=== PATIENT | male | born 1965 | race Caucasian/White ===

== ENCOUNTER → 2023-04-30 | Outpatient (CLI) | payer OTHER ==
--- NOTE | 2023-04-30 13:42 | US ---
EXAMINATION TYPE: US arterial LE single level DATE OF EXAM: 04/30/2023 1:05 PM CLINICAL INDICATION: Male, 58 years old with history of M79.662 Pain in left lower M79.661 pain in r ight lower leg; Bilateral leg pain with walking Right > Left. Thickened toe nails History of: Smoker: Previous Hypertension: Takes medication Diabetic: No Hyperlipidemia: Yes TIA/CVA: No Previous Vascular Surgery: No CAD: No LA: No Vascular Ulcers: No Claudication: Bilateral Gangrene: No Doppler Waveforms: Right: Biphasic waveforms are within the popliteal and posterior tibial, and likely dorsalis pedis ar teries. Monophasic waveforms within the right digit. Left: Popliteal artery has biphasic waveforms and posterior tibial artery has triphasic waveforms. Do rsalis pedis left digital artery appear monophasic. Right Brachial Pressure: 134 Left Brachial Pressure: 146 Ankle-Brachial Indices: Right: 0.6 Left: 1.2 Toe Brachial Indices: Right: 0.5 Left: 0.8 IMPRESSION: 1. Waveforms and ratios suggest stenosis within the distal left lower extremity. 2. Waveforms and ratios suggest stenosis throughout the right lower extremity. 3. Consider CTA runoff for additional evaluation.
== END | disposition home or self-care (01) ==
LOC: RADUSWWP 12:22
PROVIDERS: ATTEND Family Medicine
DX: M79.662 Pain in left lower leg (principal); M79.661 Pain in right lower leg
CPT/HCPCS: 93923

== ENCOUNTER 2023-09-13 11:38 | Inpatient (IN) | payer OTHER ==
--- NOTE | 2023-09-13 11:50 | ED ---
General Adult HPI - General Source: patient, RN notes reviewed Mode of arrival: ambulatory Limitations: no limitations <Hany Craig - Last Filed: 09/13/23 11:47> <Jc Joiner - Last Filed: 09/13/23 13:15> - General Stated complaint: chest pain Time Seen by Provider: 09/13/23 11:47 - History of Present Illness Initial comments: 58-year-old male presents emergency Department with chief complaint of chest pain. States it started around 1 AM. Patient states it's centralized pressure type pain. He does have a history of hypertension he denies any prior cardiac disease otherwise denies history of diabetes or heart anemia denies any prior cardiac stents. (Hany Craig) Dictation was produced using [employer]code dictation software. please excuse any grammatical, word or spelling errors. Chief Complaint: 58-year-old male presents emergency department with chest pain History of Present Illness: Patient is a 50-year-old male presents emergency department with chest pressure he describes it as a feeling of gas in the middle of his chest. Does not have any radiation of symptoms not his arm up towards his jaw. Not associated with nausea or diaphoresis. Patient states he has extensive family history of coronary artery disease. He has no known medical problems. The ROS documented in this emergency department record has been reviewed and confirmed by me. Those systems with pertinent positive or negative responses have been documented in the HPI. All other systems are other negative and/or noncontributory. (Jc Joiner) - Related Data Allergies Allergy/AdvReac Type Severity Reaction Status Date / Time No Known Allergies Allergy Verified 09/13/23 11:48 Review of Systems ROS Other: All systems not noted in ROS Statement are negative. <Hany Craig - Last Filed: 09/13/23 11:47> ROS Other: All systems not noted in ROS Statement are negative. <Jc Joiner - Last Filed: 09/13/23 13:15> ROS Statement: Those systems with pertinent positive or pertinent negative responses have been documented in the HPI. General Exam Limitations: no limitations General appearance: alert, in no apparent distress Head exam: Present: atraumatic, normocephalic, normal inspection <Hany Craig - Last Filed: 09/13/23 11:47> <Jc Joiner - Last Filed: 09/13/23 13:15> - General Exam Comments Initial Comments: Visual Physical Exam Vital signs reviewed General: Well-appearing, nontoxic, no acute distress. Head: Normocephalic, atraumatic Eyes: PERRLA, EOMI ENT: Airway patent Chest: Nonlabored breathing Skin: No visual rash, normal skin tone Neuro: Alert and oriented 3 Musculoskeletal: No gross abnormalities (Hany Craig) PHYSICAL EXAM: General Impression: Alert and oriented x3, not in acute distress HEENT: Normocephalic atraumatic, extra-ocular movements intact, pupils equal and reactive to light bilaterally, mucous membranes moist. Cardiovascular: Heart regular rate and rhythm Chest: Able to complete full sentences, no retractions, no tachypnea Abdomen: abdomen soft, non-tender, non-distended, no organomegaly Musculoskeletal: Pulses present and equal in all extremities, no peripheral edema Motor: no focal deficits noted Neurological: CN II-XII grossly intact, no focal motor or sensory deficits noted Skin: Intact with no visualized rashes Psych: Normal affect and mood (Jc Joiner) Course Vital Signs 09/13/23 11:45 Temperature 98 F Pulse Rate 62 Respiratory 18 Rate Blood Pressure 129/78 O2 Sat by Pulse 98 Oximetry EKG Findings - EKG Comments: EKG Findings:: My EKG interpretation: Ventricular rate 50, sinus bradycardia, WA 175,. 5, QTC 395, small Q-wave and T-wave inversion in lead 3 and aVF. No other abnormalities noted. No WA prolongation, no QTC prolongation, no ST or T- wave changes noted. No old EKG for comparison. Clinical presentation suggests ischemic EKG changes. <Jc Joiner - Last Filed: 09/13/23 13:15> Medical Decision Making <Hany Craig - Last Filed: 09/13/23 11:47> - Lab Data Result diagrams: 09/13/23 11:49 09/13/23 11:49 <Jc Joiner - Last Filed: 09/13/23 13:15> - Medical Decision Making I performed a quick note portion of this chart signed Hany Craig PA-C (Hany Craig) Was pt. sent in by a medical professional or institution ([facility], [employer], urgent care, hospital, or alf...) When possible be specific @ -No Did you speak to anyone other than the patient for history (EMS, parent, family, police, friend...)? What history was obtained from this source @ -No Did you review nursing and triage notes (agree or disagree)? Why? @ -I reviewed and agree with nursing and triage notes Were old charts reviewed (outside hosp., previous admission, EMS record, old EKG, old radiological studies, urgent care reports/EKG's, alf records)? Report findings @ -No old charts were reviewed Differential Diagnosis (chest pain, altered mental status, abdominal pain women, abdominal pain men, vaginal bleeding, musculoskeletal, weakness, fever, dyspnea, syncope, headache, dizziness, GI bleed, back pain, seizure, CVA, palpatations, mental health)? @ -Differential Chest Pain: Stable Angina, Unstable Angina, STEMI, NSTEMI Aortic Dissection, Pneumothorax, Musculoskeletal, Esophageal Spasm GERD, Cholecystitis, Pancreatitis, Zoster, this is not meant to be an all-inclusive list. EKG interpreted by me (3pts min.). @ -See above X-rays interpreted by me (1pt min.). @ -Pending CT interpreted by me (1pt min.). @ -None done U/S interpreted by me (1pt. min.). @ -None done What testing was considered but not performed or refused? (CT, X-rays, U/S, labs)? Why? @ -None What meds were considered but not given or refused? Why? @ -None Did you discuss the management of the patient with other professionals (professionals i.e. [employer] [facility], [employer], lab, RT, psych nurse, social media campaign manager, community youth secretary, teacher, parole hearing officer, bilingual case manager)? Give summary @ -Case discussed in detail with baggage clerk Dr. Gomes. Discussed with Dr. Cuadra for admission Was smoking cessation discussed for >3mins.? @ -No Was critical care preformed (if so, how long)? @ -Yes, 33 minutes Were there social determinants of health that impacted care today? How? (Homelessness, low income, unemployed, alcoholism, drug addiction, transporta tion, low edu. Level, literacy, decrease access to med. care, senior living, rehab)? @ -No Was there de-escalation of care discussed even if they declined (Discuss DNR or withdrawal of care, Hospice)? DNR status @ -No What co-morbidities impacted this encounter? (DM, HTN, Smoking, COPD, CAD, Cancer, CVA, ARF, Chemo, Hep., AIDS, mental health diagnosis, sleep apnea, morbid obesity)? @ -None Was patient admitted / discharged? Hospital course, mention meds given and route, prescriptions, significant lab abnormalities, going to OR and other pertinent info. @ -58-year-old male presents to emergency Department with ACS chest pain. Vital signs are stable. Laboratory evaluation obtained. Patient has troponin level 4.680. Case discussed with cardiology. They evaluated patient at the bedside. Patient admitted. Start on heparin given aspirin. Undiagnosed new problem with uncertain prognosis? @ -No Drug Therapy requiring intensive monitoring for toxicity (Heparin, Nitro, Insulin, Cardizem)? @ -No Were any procedures done? @ -No Diagnosis/symptom? Acute, or Chronic, or Acute on Chronic? Uncomplicated (without systemic symptoms) or Complicated (systemic symptoms)? @ -NSTEMI Side effects of treatment? @ -No Exacerbation, Progression, or Severe Exacerbation? @ -No Poses a threat to life or bodily function? How? (Chest pain, [place], [place], pneumonia, PE, COPD, DKA, ARF, appy, cholecystitis, CVA, Diverticulitis, Homicidal, Suicidal, threat to staff... and all critical care pts) @ -yes (Jc Joiner) - Lab Data Lab Results 09/13/23 09/13/23 09/13/23 Range/Units 11:49 11:49 11:49 WBC 15.3 H (3.8-10.6) k/uL RBC 4.62 (4.30-5.90) m/uL Hgb 14.9 (13.0-17.5) gm/dL Hct 41.3 (39.0-53.0) % MCV 89.4 (80.0-100.0) fL MCH 32.2 (25.0-35.0) pg MCHC 36.0 (31.0-37.0) g/dL RDW 12.2 (11.5-15.5) % Plt Count 301 (150-450) k/uL MPV 8.5 Neutrophils % 78 % Lymphocytes % 17 % Monocytes % 3 % Eosinophils % 1 % Basophils % 0 % Neutrophils # 12.0 H (1.3-7.7) k/uL Lymphocytes # 2.5 (1.0-4.8) k/uL Monocytes # 0.5 (0-1.0) k/uL Eosinophils # 0.1 (0-0.7) k/uL Basophils # 0.0 (0-0.2) k/uL PT 10.1 (10.0-12.5) sec INR 0.9 (<1.2) APTT 23.7 (22.0-30.0) sec Sodium 135 L (137-145) mmol/L Potassium 4.3 (3.5-5.1) mmol/L Chloride 106 (98-107) mmol/L Carbon Dioxide 19 L (22-30) mmol/L Anion Gap 10 mmol/L BUN 12 (9-20) mg/dL Creatinine 0.54 L (0.66-1.25) mg/dL Est GFR (CKD-EPI)AfAm >90 (>60 ml/min/1.73 sqM) Est GFR (CKD-EPI)NonAf >90 (>60 ml/min/1.73 sqM) Glucose 136 H (74-99) mg/dL Calcium 9.3 (8.4-10.2) mg/dL Magnesium 1.8 (1.6-2.3) mg/dL Total Bilirubin 0.7 (0.2-1.3) mg/dL AST 91 H (17-59) U/L ALT 32 (4-49) U/L Alkaline Phosphatase 51 (38-126) U/L Troponin I (0.000-0.034) ng/mL NT-Pro-B Natriuret Pep 210 pg/mL Total Protein 8.0 (6.3-8.2) g/dL Albumin 4.5 (3.5-5.0) g/dL 09/13/23 Range/Units 11:49 WBC (3.8-10.6) k/uL RBC (4.30-5.90) m/uL Hgb (13.0-17.5) gm/dL Hct (39.0-53.0) % MCV (80.0-100.0) fL MCH (25.0-35.0) pg MCHC (31.0-37.0) g/dL RDW (11.5-15.5) % Plt Count (150-450) k/uL MPV Neutrophils % % Lymphocytes % % Monocytes % % Eosinophils % % Basophils % % Neutrophils # (1.3-7.7) k/uL Lymphocytes # (1.0-4.8) k/uL Monocytes # (0-1.0) k/uL Eosinophils # (0-0.7) k/uL Basophils # (0-0.2) k/uL PT (10.0-12.5) sec INR (<1.2) APTT (22.0-30.0) sec Sodium (137-145) mmol/L Potassium (3.5-5.1) mmol/L Chloride (98-107) mmol/L Carbon Dioxide (22-30) mmol/L Anion Gap mmol/L BUN (9-20) mg/dL Creatinine (0.66-1.25) mg/dL Est GFR (CKD-EPI)AfAm (>60 ml/min/1.73 sqM) Est GFR (CKD-EPI)NonAf (>60 ml/min/1.73 sqM) Glucose (74-99) mg/dL Calcium (8.4-10.2) mg/dL Magnesium (1.6-2.3) mg/dL Total Bilirubin (0.2-1.3) mg/dL AST (17-59) U/L ALT (4-49) U/L Alkaline Phosphatase (38-126) U/L Troponin I 4.680 H* (0.000-0.034) ng/mL NT-Pro-B Natriuret Pep pg/mL Total Protein (6.3-8.2) g/dL Albumin (3.5-5.0) g/dL Disposition <Hany Craig - Last Filed: 09/13/23 11:47> Decision Time: 13:15 <Jc Joiner - Last Filed: 09/13/23 13:15> Clinical Impression: NSTEMI (non-ST elevated myocardial infarction) Disposition: ADMITTED IP TO THIS HOSP Condition: Critical Referrals: Francois Patel Jr, DO [Primary Care Provider] - 1-2 days
[2023-09-13 12:10] LABS: Basophils % (A) 0 %; Eosinophils # (A) 0.1 k/uL (0-0.7); Eosinophils % (A) 1 %; HCT 41.3 % (39.0-53.0); HGB 14.9 gm/dL (13.0-17.5); Lymphocytes # (A) 2.5 k/uL (1.0-4.8); Lymphocytes % (A) 17 %; MCH 32.2 pg (25.0-35.0); MCV 89.4 fL (80.0-100.0); Mean Platelet Volume 8.5; Monocytes # (A) 0.5 k/uL (0-1.0); Monocytes % (A) 3 %; Neutrophils % (A) 78 %; Platelet Count 301 k/uL (150-450); RBC 4.62 m/uL (4.30-5.90); RDW 12.2 % (11.5-15.5); WBC 15.3 k/uL (3.8-10.6)
[2023-09-13 12:18] LABS: INR 0.9 (<1.2); Partial Thromboplastin Time 23.7 sec (22.0-30.0); Prothrombin Time 10.1 sec (10.0-12.5)
[2023-09-13 12:28] LABS: ALT 32 U/L (4-49); AST 91 U/L (17-59); African American GFR (CKD) >90 (>60 ml/min/1.73 sqM); Albumin 4.5 g/dL (3.5-5.0); Alkaline Phosphatase 51 U/L (38-126); Anion Gap 10 mmol/L; Blood Urea Nitrogen 12 mg/dL (9-20); Calcium 9.3 mg/dL (8.4-10.2); Carbon Dioxide 19 mmol/L (22-30); Chloride 106 mmol/L (98-107); Glucose 136 mg/dL (74-99); Magnesium 1.8 mg/dL (1.6-2.3); Non-African American GFR(CKD) >90 (>60 ml/min/1.73 sqM); Potassium 4.3 mmol/L (3.5-5.1); Sodium 135 mmol/L (137-145); Total Bilirubin 0.7 mg/dL (0.2-1.3)
[2023-09-13] MEDS ORDERED: ASPIRIN 81 MG PO STA (12:28)
[2023-09-13 12:36] LABS: NT-Pro-B-Type Natriuretic Pept 210 pg/mL
[2023-09-13] MEDS ORDERED: HEPARIN SODIUM 1,000 UN/ML (10ML VL) IV PRN (12:54)
[2023-09-13] MEDS ORDERED: HEPARIN SODIUM 1,000 UN/ML (10ML VL) IV ONE (12:54)
[2023-09-13] MEDS ORDERED: HEPARIN SOD,PORK IN 0.45% NACL 25,000 UNIT in 0.45% NACL 1 250ML.BAG IV SCH (13:00)
[2023-09-13] MEDS ORDERED: NITROGLYCERIN SL TABS 0.4 MG TAB SUBLINGUAL PRN ×2 (13:10→13:33)
[2023-09-13] MEDS ORDERED: ALPRAZolam 0.5 MG TAB PO PRN (13:33)
[2023-09-13] MEDS ORDERED: ALPRAZolam 0.25 MG TAB PO PRN (13:33)
[2023-09-13] MEDS: METOPROLOL TARTRATE 12.5 MG TAB PO SCH ×2 (14:31→21:55)
[2023-09-13] MEDS: NITROGLYCERIN OINT 1 INCH/GM PACKET TOPICAL SCH ×2 (14:31→18:11)
[2023-09-13] MEDS: SODIUM CHLORIDE 0.9% 1,000 ML IV SCH (14:33)
--- NOTE | 2023-09-13 15:28 | XR ---
EXAMINATION TYPE: XR chest 2V DATE OF EXAM: 09/13/2023 3:17 PM COMPARISON: None TECHNIQUE: XR chest 2V Frontal and lateral views of the chest. CLINICAL INDICATION:Male, 58 years old with history of Chest Pain; FINDINGS: Lungs/Pleura: There is no evidence of pleural effusion, focal consolidation, or pneumothorax. Slight elevation of the right hemidiaphragm. Pulmonary vascularity: Unremarkable. Heart/mediastinum: Cardiomediastinal silhouette is unremarkable. Musculoskeletal: No acute osseous pathology. IMPRESSION: No acute cardiopulmonary disease/process.
[2023-09-13] MEDS ORDERED: NITROGLYCERIN-D5W PMX 50 MG in DEXTROSE/WATER 1 250ML.BAG IV SCH (19:15)
--- NOTE | 2023-09-13 19:29 | CA ---
Transthoracic Echo Report Name: Misael Rothman Age: 58 Gender: M : 1965 Exam Date: 09/13/2023 13:47 Exam Location: [facility] Ht (in): 68 Wt (lb): 250 Ordering Physician: Zulema Lafleur Attending/Referring Phys: [id number], Miquel Surgical Tech Edgardo Conway Procedure CPT: Indications: NSTEMI, LV Function Cardiac Hx: Technical Quality: Fair Contrast 1: Total Dose (mL): Contrast 2: Total Dose (mL): MEASUREMENTS (Male / Female) Normal Values 2D ECHO LV Diastolic Diameter PLAX 4.3 cm 4.2 - 5.9 / 3.9 - 5.3 cm LV Systolic Diameter PLAX 3.3 cm IVS Diastolic Thickness 1.0 cm 0.6 - 1.0 / 0.6 - 0.9 cm LVPW Diastolic Thickness 1.1 cm 0.6 - 1.0 / 0.6 - 0.9 cm LV Relative Wall Thickness 0.5 RV Internal Dim ED PLAX 3.6 cm LVOT Diameter 2.0 cm Aortic Root Diameter 2.9 cm LA Systolic Diameter LX 2.3 cm 3.0 - 4.0 / 2.7 - 3.8 cm LV Diastolic Volume MOD BP 76.0 cm??? 67 - 155 / 56 - 104 cm??? LV Systolic Volume MOD BP 38.1 cm??? 22 - 58 / 19 - 49 cm??? LV Ejection Fraction MOD BP 49.8 % >= 55 % LV Cardiac Index MOD BP 842.4 cm???/min???m??? LV Diastolic Volume MOD 4C 94.5 cm??? LV Systolic Volume MOD 4C 46.9 cm??? LV Ejection Fraction MOD 4C 50.4 % LV Cardiac Index MOD 4C 1060.7 cm???/min???m??? LV Diastolic Length 4C 7.9 cm LV Systolic Length 4C 7.3 cm LV Diastolic Volume MOD 2C 60.1 cm??? LV Systolic Volume MOD 2C 27.3 cm??? LV Ejection Fraction MOD 2C 54.6 % LV Cardiac Index MOD 2C 730.2 cm???/min???m??? LV Diastolic Length 2C 7.7 cm LV Systolic Length 2C 6.4 cm LA Volume 55.9 cm??? 18 - 58 / 22 - 52 cm??? LA Volume Index 23.5 cm???/m??? 16 - 28 cm???/m??? Ascending Aorta Diameter 3.6 cm DOPPLER AV Peak Velocity 163.3 cm/s AV Peak Gradient 10.7 mmHg LVOT Peak Velocity 135.7 cm/s LVOT Peak Gradient 7.4 mmHg LVOT Velocity Time Integral 28.9 cm LVOT Stroke Volume 89.1 cm??? LVOT Stroke Volume Index 39.6 ml/m??? LVOT Cardiac Index 1982.9 cm???/min???m??? AV Area Cont Eq pk 2.6 cm??? MV Peak Velocity 123.5 cm/s MV Peak Gradient 6.1 mmHg MV Mean Velocity 63.9 cm/s MV Mean Gradient 2.1 mmHg MV Velocity Time Integral 54.6 cm Mitral E Point Velocity 118.7 cm/s Mitral A Point Velocity 85.6 cm/s Mitral E to A Ratio 1.4 MV Deceleration Time 193.3 ms MV E' Velocity 8.8 cm/s Mitral E to MV E' Ratio 13.5 TR Peak Velocity 258.0 cm/s TR Peak Gradient 26.6 mmHg Right Ventricular Systolic Press 31.6 mmHg PV Peak Velocity 111.1 cm/s PV Peak Gradient 4.9 mmHg FINDINGS Left Ventricle Normal LV size and wall thickness. Left ventricular ejection fraction is estimated at 45-50 %. Inferoapical and inferoseptal hypokinesis Right Ventricle Normal right ventricular size. RVSP=32mmHg. Right Atrium Normal right atrial size. Left Atrium Normal left atrial size. LA volume index= 25ml/m2 Mitral Valve Structurally normal mitral valve. No mitral regurgitation. No mitral stenosis. Aortic Valve Aortic valve not well visualized. Trileaflet aortic valve. No aortic valve stenosis or regurgitation. Tricuspid Valve Structurally normal tricuspid valve. Trace TR. Pulmonic Valve Pulmonic valve not well visualized. No pulmonic regurgitation. Pericardium Normal pericardium. Aorta Normal size aortic root and proximal ascending aorta. CONCLUSIONS 1. Mildly impaired left ventricular systolic function with inferoapical and inferoseptal hypokinesis 2. Limited Doppler study with no significant abnormalities Previewed by: Dr. Nata Clark MD (Electronically Signed) Final Date: 13 September 2023 19:28
[2023-09-13] MEDS: ATORVASTATIN 80 MG TAB PO SCH (21:55)
[2023-09-13] MEDS: SODIUM CHLORIDE 0.9% 1,000 ML in EMPTY BAG 1 BAG IV SCH (23:19)
--- NOTE | 2023-09-13 23:53 | CONS ---
CONSULTATION HISTORY OF PRESENT ILLNESS: Misael Rothman is a 58-year-old gentleman, who has a history of hypertension, peripheral arterial disease, and also marijuana use. He uses marijuana every day. He does not consume alcohol on a regular basis. He came into the hospital because he felt uncomfortable feeling in the chest at about midnight last night. It is more than 12 hours. He still has a mild sensation of discomfort, but he is resting comfortably. His troponin is elevated and EKG suggests sinus bradycardia with Q-waves in the inferior leads and ST-T changes indicating subacute myocardial infarction. The patient is hemodynamically stable. His discomfort is very mild. He is resting comfortably. He also had a recent arterial Doppler study performed because of some lower extremity ischemia symptoms and VIRI was abnormal with 0.6 on the right and 1.2 on the left. However, distal pulses are also palpable, somewhat feeble. He is resting comfortably at the time of my evaluation. PAST MEDICAL HISTORY: 1. Hypertension. He takes a medication, unable to remember. 2. Right lower extremity pain on walking with peripheral artery disease documented ischemia, documented diffuse disease on a doppler study. 3. History of marijuana use. ALLERGIES: None. MEDICATIONS: He does not remember, but he takes 1 medication for his blood pressure. Coronary risk factors include marijuana use, hypertension, cholesterol status is unknown. He does not smoke cigarettes and he has no diabetes and no family history of premature CAD. PHYSICAL EXAMINATION: VITAL SIGNS: His blood pressure is 128/70, pulse rate is 62 per minute regular. HEENT: Unremarkable. Fundus was not examined by me. NECK: Supple. There is no carotid bruit. No JVD. HEART: Reveals S1, S2 heard normally. Distant heart sounds. No significant murmurs. LUNGS: Revealed decent bilateral air entry. ABDOMEN: Soft, nontender. EXTREMITIES: Lower extremities reveal diminished, but palpable pulses. CENTRAL NERVOUS SYSTEM: Grossly within normal limits. Troponin level is 4.6. BNP is normal. Renal function is normal. Hemoglobin and platelet count are normal. EKG revealed sinus mechanism, sinus bradycardia, inferior Q-waves with ST-T abnormalities suggestive of a subacute inferior ID. IMPRESSION: 1. Lej-[id number] myocardial infarction, probably involving the inferior wall with no significant chest pain. Hemodynamically stable. 2. History of marijuana use. 3. Hypertension. 4. History of peripheral artery disease with right lower extremity ischemia based on a Doppler study that was performed in April of this year, which revealed an VIRI of 0.6 on the right and 1.2 on the left. It appears that there are biphasic waveforms in the popliteal and posterior tibial, and monophasic in the right digit. On the left side also there are biphasic waveforms with triphasic waveforms in the posterior tibial, but again he has distal disease. IMPRESSION: 1. Subacute non ST elevation myocardial infarction. 2. Peripheral artery disease, bilateral lower extremity, more so on the right than the left. 3. Hypertension. 4. Chronic marijuana use. RECOMMENDATIONS: I am recommending IV heparin, nitrates, aspirin and avoid beta blockers if the heart rate is less than 55. If he has no further increase in symptoms, I will study him tomorrow on a cardiac cath and intervention from right radial approach. If he has any increase in symptomatology, we will study him today. I explained to him the rationale, risks, benefits, options related to cardiac cath. He understands and wishes to proceed with the procedure. We will keep him n.p.o. and see how he does over the next 3 hours. Discussed my thoughts in detail with the patient and his son. Thank you very much for the consult. MMFRANCEL / IJN: [id number] /
[2023-09-14] MEDS: SODIUM CHLORIDE 0.9% 1,000 ML IV SCH (03:20)
[2023-09-14 03:54] LABS: LDL Cholesterol,Calculated 145.8 mg/dL (0.0-131.0)
[2023-09-14] MEDS ORDERED: ASPIRIN 325 MG TAB PO ONE (05:00)
[2023-09-14] MEDS ORDERED: ATORVASTATIN 80 MG TAB PO ONE (05:00)
[2023-09-14] MEDS: SODIUM CHLORIDE 0.9% 1,000 ML in EMPTY BAG 1 BAG IV SCH ×3 (05:33→22:48)
[2023-09-14] MEDS ORDERED: HEPARIN SODIUM,PORCINE (1 ML) 2,500 UNIT in SODIUM CHLORIDE 0.9% 250 ML IRRIGATION PRN (07:00)
[2023-09-14] MEDS ORDERED: HEPARIN SODIUM,PORCINE 10,000 UNIT in SODIUM CHLORIDE 0.9% 1,000 ML IRRIGATION PRN (07:00)
[2023-09-14] MEDS ORDERED: LIDOCAINE 1% INJ 10MG/ML (20 ML MDV) ONE (07:21)
[2023-09-14] MEDS ORDERED: VERAPAMIL 2.5 MG/ML 2 ML AMP ONE (07:21)
[2023-09-14] MEDS ORDERED: HEPARIN SODIUM 1,000 UN/ML (10ML VL) ONE (07:36)
[2023-09-14] MEDS: MIDAZOLAM 2 MG/2 ML VIAL IVP ONE ×2 (07:40→07:44)
[2023-09-14] MEDS ORDERED: LIDOCAINE 1% INJ 10MG/ML (5 ML VIAL-PF) SQ ONE (07:43)
[2023-09-14] MEDS ORDERED: VERAPAMIL SYRINGE (5 MG/10 ML) INTRAARTER ONE (07:47)
[2023-09-14] MEDS: HEPARIN SODIUM 1,000 UN/ML (10ML VL) IVP ONE ×3 (07:52→08:28)
[2023-09-14] MEDS ORDERED: IOPAMIDOL-370 100ML BTL INJ ONE ×2 (08:00→08:07)
[2023-09-14] MEDS ORDERED: HYDROmorphone 0.5 MG/0.5 ML SYRINGE IVP ONE (08:25)
[2023-09-14] MEDS ORDERED: TIROFIBAN 12.5MG-250ML NS 250 ML IV ONE (08:28)
[2023-09-14] MEDS ORDERED: NITROGLYCERIN 1000MCG/10ML SYRINGE INTRACORON ONE (08:31)
[2023-09-14] MEDS ORDERED: PHENYLEPHRINE-0.9% NACL SYG 1,000 MCG/10 ML SYRINGE IVP ONE ×2 (08:33→08:38)
[2023-09-14] MEDS ORDERED: SODIUM CHLORIDE 0.9% 1,000 ML IV ONE (08:41)
[2023-09-14] MEDS ORDERED: IV FLUID CONTINUATION 900 ML IV ONE (08:42)
[2023-09-14] MEDS ORDERED: TICAGRELOR 90 MG TAB ONE (08:46)
[2023-09-14] MEDS ORDERED: TICAGRELOR 90 MG TAB PO ONE (08:48)
[2023-09-14] MEDS ORDERED: ZOLPIDEM 5 MG TAB PO PRN (08:53)
[2023-09-14] MEDS ORDERED: RX INFO: IV CONTRAST WAS GIVEN 1 EACH MISC MISCELLANE PRN (08:53)
[2023-09-14] MEDS ORDERED: MAG HYDROX/AL HYDROX/SIMETH 30 ML CUP PO PRN (08:53)
[2023-09-14] MEDS ORDERED: ATROPINE SULFATE 0.1 MG/ML 10ML SYRINGE IV PRN (08:53)
[2023-09-14] MEDS ORDERED: NITROGLYCERIN SL TABS 0.4 MG TAB SUBLINGUAL PRN (08:53)
[2023-09-14] MEDS ORDERED: ASPIRIN 325 MG TAB PO SCH (09:00)
[2023-09-14] MEDS: METOPROLOL TARTRATE 12.5 MG TAB PO SCH (09:16)
[2023-09-14] MEDS: ASPIRIN 81 MG PO SCH (09:16)
--- NOTE | 2023-09-14 09:58 | CC ---
CARDIAC CATHETERIZATION REPORT PROCEDURES PERFORMED: 1. Left heart catheterization and coronary angiography. 2. Percutaneous transluminal coronary angioplasty and stenting of a totally activated mid RCA with the 3 drug-eluting stents. PERFORMED BY: Dr. Morales Gomes. ANESTHESIA: Moderate conscious sedation time was 64 minutes. The patient was administered Versed and Dilaudid. Oxygen saturation, hemodynamics and EKG were monitored closely. CLINICAL INFORMATION: Mr. Misael Rothman is a 58-year-old gentleman with a history of hypertension and chronic marijuana use, who came into the hospital with a history of chest pain 12 hours prior to arrival, had mild discomfort but already had Q-waves in inferior leads with the ST-segment changes suggestive of a subacute non ST-elevation inferior MS. He remains stable, but had a troponin elevation through the night. No significant chest pain. I performed a cardiac catheterization this morning after due discussion regarding risks, benefits, and options. PROCEDURE NOTE: Under local anesthesia and strict aseptic precautions, a 6-Vietnamese introducer was placed in the right radial artery. Using a JR4 and JL3.5 catheters, I performed coronary angiography and also checked LV pressures with the same right Kelli catheter but did not do an LV-gram. Subsequently, I went ahead and performed PCI of a totally occluded RCA in the same setting. Following the procedure, the TR band was taken out and the patient was sent to the room in stable condition. Excellent angiographic result was achieved. CARDIAC CATHETERIZATION FINDINGS: The left ventricular end-diastolic pressure was 16 mmHg without any gradient across aortic valve. CORONARY ANGIOGRAPHY FINDINGS: Right coronary artery: This is a dominant vessel, totally occluded in the midportion without antegrade flow. This vessel comes off almost vertically from the aorta at a vertical takeoff. A cannulation was somewhat difficult. There was no antegrade flow. This is a super dominant vessel totally occluded in the midportion. Left main coronary artery: This is a short patent disease-free vessel that bifurcates into LAD and circumflex. Left anterior descending coronary artery: Good-caliber vessel, extends along the anterior wall, gives off septal and diagonal branches. There are minor irregularities of 30% to 40%. Mid LAD has some bridging and then the vessel runs all the way to the apex and curves over the inferoapical portion, has no significant disease. LAD therefore has bridging in the middle 30% to 40% narrowing. No significant disease. Left posterior circumflex coronary artery: Nondominant vessel, gives off an obtuse marginal branch and this has a subtotal occlusion, probably a chronic occlusion and then gives off a groove branch. Fair caliber, fair distribution vessel, but nondominant, right super dominant. FINAL IMPRESSION: The patient has slightly elevated filling pressures. No gradient. Super dominant RCA with 100% occlusion in the midportion. The LAD has noncritical disease of 30% to 40% with bridging in the midportion. Circumflex subtotal mid occlusion after a groove branch. Nondominant circumflex superdominant RCA. LVgram not performed. RECOMMENDATIONS: I recommended PCI of RCA that was performed in the same setting. PCI PROCEDURE DETAILS: I used a multipurpose 1 guide catheter to cannulate the right coronary artery, which was a vertical takeoff. Run-through wire was used to cross the lesion. Predilatation was performed with a 3.0 caliber 12 mm NC Trek balloon. Multiple inflations were given. I then deployed a 3.25 caliber 18 mm stent in the distal aspect of the lesion and another 18 mm along the proximal aspect of the lesion and in between the 2 stents, an 8 mm long 3.25 caliber Xience stent was deployed. All of these were 3.25 caliber Xience stent deployed at 13 atmospheres with excellent angiographic result. The patient became transiently hypotensive requiring 200 mg of Eugene-Synephrine. The patient's blood pressure normalized very quickly. Excellent angiographic result was achieved. He received 7000 units of heparin. ACT was 221. He also was placed on an Aggrastat bolus and drip as per protocol. The patient received 180 mg of Brilinta. He will continue aspirin and Brilinta 90 mg b.i.d. without interruption for 1 year. Excellent angiographic result without complication was achieved. Results were discussed with the patient and family. Risk factor modification issues were discussed. MMODL / IJN: [id number] /
[2023-09-14] MEDS ORDERED: DEXTROSE 50% SYRINGE 50 ML IVP PRN ×2 (17:15)
[2023-09-14 17:22] VITALS: BMI 37.0
--- NOTE | 2023-09-14 17:26 | P.HPIM ---
History of Present Illness H&P Date: 09/14/23 Chief Complaint: Chest pain This is a 58-year-old gentleman with past medical history significant for former nicotine dependence, daily marijuana use, hypertension, PAD, presented to the ER approximately 12 hours after developing midsternal nonradiating chest pressure. Patient reports he woke up at 1:30 in the morning yesterday with a "gas-like pressure", attributed to consuming chili for dinner the evening before. Elevated troponins, 4.68, 18.8, 35.3, abnormal EKG with inferior lead Q waves and ST segment changes, subacute NSTEMI as per cardiology's review. Patient proceeded with cardiac catheterization this morning, reporting slightly elevated filling pressures, superdominant RCA with 100% occlusion in the midportion, LAD with noncritical disease of 30-40% with bridging in the midportion, circumflex subtotal mid occlusion after a groove branch, nondominant circumflex superdominant RCA. PCI of RCA performed. Tolerated procedure well. Currently denies chest pain chest pressure or palpitations or shortness of breath. Review of Systems ROS Statement: Those systems with pertinent positive or pertinent negative responses have been documented in the HPI. ROS Other: All systems not noted in ROS Statement are negative. Past Medical History Past Medical History: No Reported History History of Any Multi-Drug Resistant Organisms: None Reported Past Surgical History: No Surgical Hx Reported Past Psychological History: No Psychological Hx Reported Smoking Status: Former smoker Past Alcohol Use History: None Reported Past Drug Use History: None Reported, Marijuana Medications and Allergies Home Medications Medication Instructions Recorded Confirmed Type Nebivolol HCl [Bystolic] 10 mg PO PC-LUNCH 09/13/23 09/13/23 History Allergies Allergy/AdvReac Type Severity Reaction Status Date / Time No Known Allergies Allergy Verified 09/13/23 13:51 Physical Exam Vitals: Vital Signs Temp Pulse Pulse Pulse Resp BP BP 09/14/23 10:54 98.8 F 56 L 26 H 104/66 09/14/23 10:36 58 L 09/14/23 10:08 60 17 100/64 09/14/23 09:38 56 L 17 109/69 09/14/23 09:23 97.7 F 59 L 18 108/71 09/14/23 04:00 99.3 F 56 L 16 108/58 09/14/23 02:00 55 L 16 09/14/23 00:00 98.9 F 55 L 16 109/63 09/13/23 20:46 98.5 F 67 16 115/62 09/13/23 20:45 98.5 F 67 16 115/62 09/13/23 20:13 56 L 18 99/68 09/13/23 18:00 58 L 21 103/58 09/13/23 16:20 54 L 18 102/73 09/13/23 14:22 54 L 16 129/82 09/13/23 11:45 98 F 62 18 129/78 Pulse Ox 09/14/23 10:54 97 09/14/23 10:36 09/14/23 10:08 97 09/14/23 09:38 98 09/14/23 09:23 98 09/14/23 04:00 96 09/14/23 02:00 09/14/23 00:00 97 09/13/23 20:46 98 09/13/23 20:45 98 09/13/23 20:13 95 09/13/23 18:00 95 09/13/23 16:20 94 L 09/13/23 14:22 98 09/13/23 11:45 98 Intake and Output 09/13/23 09/14/23 09/14/23 22:59 06:59 14:59 Intake Total 1280 Output Total 1000 Balance -1000 1280 Intake: IV 800 Oral 480 Output: Urine 1000 Other: # Voids 1 Weight 113.398 kg 110.45 kg PHYSICAL EXAM: VITAL SIGNS: [As above] GENERAL: Lying in bed, no acute distress HEENT: Normocephalic, Conjunctivae normal. eyes normal. NECK: Supple, No JVD. No thyroid enlargement. No LNs CARDIOVASCULAR: S1, S2 regular.. No murmur RESPIRATION: Breath sounds diminished in the bases. No rhonchi or crackles. No bronchial breathing. ABDOMEN: Soft, nontender . No guarding. no masses palpable. No ascites, No hepatosplenomegaly.Bowel sounds heard. LEGS: No edema. no swelling PSYCHIATRY: Alert and oriented X3, mood and affect normal. NERVOUS SYSTEM: Cranial N 2-12 grossly normal. Moves all 4 limbs. No focal deficits. Strength and sensation grossly intact.. Skin: Warm and dry, no rash Results CBC & Chem 7: 09/13/23 11:49 09/13/23 11:49 Labs: Abnormal Lab Results - Last 24 Hours (Table) 09/13/23 09/13/23 09/13/23 Range/Units 11:49 11:49 11:49 WBC 15.3 H (3.8-10.6) k/uL Neutrophils # 12.0 H (1.3-7.7) k/uL Sodium 135 L (137-145) mmol/L Carbon Dioxide 19 L (22-30) mmol/L Creatinine 0.54 L (0.66-1.25) mg/dL Glucose 136 H (74-99) mg/dL Hemoglobin A1c (<=6.0) % AST 91 H (17-59) U/L Troponin I 4.680 H* (0.000-0.034) ng/mL Cholesterol (0.00-200.00) mg/dL LDL Cholesterol, Calc (0.0-131.0) mg/dL 09/13/23 09/13/23 09/13/23 Range/Units 11:49 17:35 21:07 WBC (3.8-10.6) k/uL Neutrophils # (1.3-7.7) k/uL Sodium (137-145) mmol/L Carbon Dioxide (22-30) mmol/L Creatinine (0.66-1.25) mg/dL Glucose (74-99) mg/dL Hemoglobin A1c 6.6 H (<=6.0) % AST (17-59) U/L Troponin I 18.800 H* (0.000-0.034) ng/mL Cholesterol 210.00 H (0.00-200.00) mg/dL LDL Cholesterol, Calc 145.8 H (0.0-131.0) mg/dL 09/14/23 Range/Units 03:36 WBC (3.8-10.6) k/uL Neutrophils # (1.3-7.7) k/uL Sodium (137-145) mmol/L Carbon Dioxide (22-30) mmol/L Creatinine (0.66-1.25) mg/dL Glucose (74-99) mg/dL Hemoglobin A1c (<=6.0) % AST (17-59) U/L Troponin I 35.300 H* (0.000-0.034) ng/mL Cholesterol (0.00-200.00) mg/dL LDL Cholesterol, Calc (0.0-131.0) mg/dL Thrombosis Risk Factor Assmnt - Choose All That Apply Any of the Below Risk Factors Present?: Yes Each Factor Represents 1 point: Age 41-60 years Other Risk Factors: No Other congenital or acquired thrombophilia - If yes, enter type in comment: No Thrombosis Risk Factor Assessment Total Risk Factor Score: 1 Thrombosis Risk Factor Assessment Level: Low Risk Assessment and Plan Assessment: Chest pain,subacute NSTEMI, status post PCI of RCA Diabetes mellitus, hemoglobin A1c 6.6, further diabetic teaching in clinic. Morbid obesity, BMI 37 Primary nicotine dependence Daily marijuana use PAD Plan: Continue on current medication regime ,monitoring and symptomatic treatment. Diabetic Education. Low-dose Levemir insulin plus NovoLog Insulin sliding scale initiated hemoglobin A1c 6.6. Currently on Aggrastat drip. Continues on aspirin,Brilenta, beta tracey, statin. Discharge planning in [facility] for tomorrow pending final NV recommendations and clearance as per cardiology. The impression and plan of care has been dictated as directed. : I performed a history and examination of this patient, discussed the same with the dictator. I agree with the dictator's note ,documented as a scribe. Any additional findings or plans will be noted.
[2023-09-14] MEDS: INSULIN ASPART (NovoLOG) 100 UNIT/ML VIAL SQ SCH ×2 (18:17→20:37)
[2023-09-14 20:25] LABS: Glucose,Whole Blood 126 mg/dL (70-110)
[2023-09-14] MEDS: ATORVASTATIN 80 MG TAB PO SCH (20:41)
[2023-09-14] MEDS: METOPROLOL TARTRATE 25 MG TAB PO SCH (20:41)
[2023-09-14] MEDS ORDERED: TICAGRELOR 90 MG TAB PO SCH (21:00)
[2023-09-14] MEDS ORDERED: INSULIN DETEMIR (LEVEMIR) 100 UNIT/ML SYR SQ SCH (21:00)
[2023-09-14] MEDS ORDERED: LOSARTAN 25 MG TAB PO SCH (21:00)
[2023-09-15] MEDS: NITROGLYCERIN OINT 1 INCH/GM PACKET TOPICAL SCH (02:38)
[2023-09-15 06:08] LABS: Glucose,Whole Blood 105 mg/dL (70-110)
[2023-09-15] MEDS: INSULIN ASPART (NovoLOG) 100 UNIT/ML VIAL SQ SCH ×2 (06:20→11:40)
[2023-09-15] MEDS: SODIUM CHLORIDE 0.9% 1,000 ML in EMPTY BAG 1 BAG IV SCH (08:07)
[2023-09-15 08:41] LABS: Basophils # (A) 0.1 k/uL (0-0.2); Basophils % (A) 0 %; Eosinophils # (A) 0.1 k/uL (0-0.7); Eosinophils % (A) 1 %; HCT 37.3 % (39.0-53.0); Lymphocytes # (A) 2.9 k/uL (1.0-4.8); Lymphocytes % (A) 19 %; MCH 31.5 pg (25.0-35.0); MCHC 34.9 g/dL (31.0-37.0); MCV 90.3 fL (80.0-100.0); Monocytes # (A) 0.8 k/uL (0-1.0); Monocytes % (A) 5 %; Neutrophils # (A) 11.5 k/uL (1.3-7.7); Neutrophils % (A) 74 %; Platelet Count 248 k/uL (150-450); RBC 4.12 m/uL (4.30-5.90); RDW 12.1 % (11.5-15.5); WBC 15.5 k/uL (3.8-10.6)
[2023-09-15] MEDS ORDERED: TICAGRELOR 90 MG TAB PO SCH ×2 (09:00)
[2023-09-15] MEDS: ASPIRIN 81 MG PO SCH (09:04)
[2023-09-15] MEDS: METOPROLOL TARTRATE 25 MG TAB PO SCH (09:04)
[2023-09-15 09:05] LABS: African American GFR (CKD) >90 (>60 ml/min/1.73 sqM); Anion Gap 9 mmol/L; Blood Urea Nitrogen 13 mg/dL (9-20); Calcium 9.1 mg/dL (8.4-10.2); Carbon Dioxide 22 mmol/L (22-30); Chloride 105 mmol/L (98-107); Glucose 160 mg/dL (74-99); Non-African American GFR(CKD) >90 (>60 ml/min/1.73 sqM); Potassium 3.9 mmol/L (3.5-5.1); Sodium 136 mmol/L (137-145)
[2023-09-15 11:36] VITALS: BP 115/76; PULSE 70; RESP 20; TEMP 98.8
[2023-09-15 11:39] LABS: Glucose,Whole Blood 95 mg/dL (70-110)
--- NOTE | 2023-09-15 12:44 | P.PN ---
Subjective HISTORY OF PRESENT ILLNESS: Patient is status post cardiac catheterization with stenting of the mid RCA with 3 stents. Patient examined this morning at the bedside. Patient denies any chest pain or pressure. He denies any shortness of breath. He has been up ambulating without difficulty. Echocardiogram completed revealing ejection fraction 45-50%, inferior apical and inferior septal hypokinesis, and trace TR. PHYSICAL EXAM: VITAL SIGNS: Reviewed. GENERAL: Well-developed in no acute distress. NECK: Supple. No JVD or thyromegaly LUNGS: Respirations even and unlabored. Lungs essentially clear to auscultation bilaterally. HEART: Regular rate and rhythm. S1 and S2 heard. EXTREMITIES: Normal range of motion. No clubbing or cyanosis. Peripheral pulses intact. No lower extremity edema ASSESSMENT: Non-STEMI, status post cardiac catheterization with stenting to the mid RCA Mild ischemic cardiomyopathy PLAN: Continue Dilantin platelet therapy with aspirin and Brilinta Continue high intensity statin Continue additional cardiac medications Patient may be discharged home today from a cardiac standpoint He is to follow-up outpatient with Dr. Gomes Nurse practitioner note has been reviewed by physician. Signing provider agrees with the documented findings, assessment, and plan of care. Objective - Vital Signs Vital signs: Vital Signs Temp 98.8 F 09/15/23 11:18 Pulse 70 09/15/23 11:18 Resp 20 09/15/23 11:18 BP 115/76 09/15/23 11:18 Pulse Ox 99 09/15/23 11:18 FiO2 Intake & Output 09/14/23 09/15/23 09/15/23 18:59 06:59 18:59 Intake Total 1516 480 Balance 1516 480 Weight 110.45 kg Intake: IV 800 Oral 716 480 Other: # Voids 1 - Labs CBC & Chem 7: 09/15/23 07:59 09/15/23 07:59 Labs: Abnormal Lab Results - Last 24 Hours (Table) 09/14/23 09/15/23 09/15/23 Range/Units 20:22 07:59 07:59 WBC 15.5 H (3.8-10.6) k/uL RBC 4.12 L (4.30-5.90) m/uL Hct 37.3 L (39.0-53.0) % Neutrophils # 11.5 H (1.3-7.7) k/uL Sodium 136 L (137-145) mmol/L Creatinine 0.65 L (0.66-1.25) mg/dL Glucose 160 H (74-99) mg/dL POC Glucose (mg/dL) 126 H (70-110) mg/dL
== END 2023-09-15 13:24 | disposition home or self-care (01) | DRG 174 ==
LOC: EC 11:38 → 3SCARD 13:11
PROVIDERS: ADMIT Family Medicine; ATTEND Family Medicine
PROC: 4A023N7 Measurement of Cardiac Sampling and Pressure, Left Heart, Percutaneous Approach (ICD-10-PCS; 2023-09-14)
PROC: 027036Z Dilation of Coronary Artery, One Artery with Three Drug-eluting Intraluminal Devices, Percutaneous Approach (ICD-10-PCS; principal; 2023-09-14 07:30)
PROC: B2111ZZ Fluoroscopy of Multiple Coronary Arteries using Low Osmolar Contrast (ICD-10-PCS; 2023-09-14 07:30)
DX: I21.4 Non-ST elevation (NSTEMI) myocardial infarction (principal); E66.01 Morbid (severe) obesity due to excess calories; I25.5 Ischemic cardiomyopathy; I25.110 Atherosclerotic heart disease of native coronary artery with unstable angina pectoris; E11.51 Type 2 diabetes mellitus with diabetic peripheral angiopathy without gangrene; I07.1 Rheumatic tricuspid insufficiency; I10 Essential (primary) hypertension; F17.210 Nicotine dependence, cigarettes, uncomplicated; Z71.6 Tobacco abuse counseling; Z68.37 Body mass index [BMI] 37.0-37.9, adult; Z82.49 Family history of ischemic heart disease and other diseases of the circulatory system
CPT/HCPCS: 36415; 71046; 80048; 80053; 80061; 83036; 83735; 83880; 84484; 85025; 85610; 85730; 93005; 93306; 93458; 94760; 96365; 96366; 96374; 99291

== ENCOUNTER 2023-09-18 11:00 | Emergency (ER) | payer OTHER ==
[2023-09-18 11:15] VITALS: BP 138/58; PULSE 81; RESP 20; TEMP 99.4
[2023-09-18] MEDS ORDERED: methylPREDNISolone SOD SUCCI 125 MG/2 ML VIAL IM ONE (11:24)
--- NOTE | 2023-09-18 11:28 | ED ---
General Adult HPI - General Chief complaint: Recheck/Abnormal Lab/Rx Stated complaint: mouth swelling Time Seen by Provider: 09/18/23 11:05 Source: patient, RN notes reviewed, old records reviewed Mode of arrival: ambulatory Limitations: no limitations - History of Present Illness Initial comments: This is a 58-year-old male who presents emergency Department complaining of lip swelling and tongue swelling. Patient states he's had this occur about every 6 months for the last 3 years since he had his teeth pulled. Patient states he just was started on some new medications one of which was Cozaar about 3 days ago. Patient states she woke up this morning his lips are swollen and is tongue was swollen. Patient states she has no difficulty breathing and a little bit of problems swallowing but he is able to keep his saliva down. Patient states yesterday he went to see his primary medical care doctor because he was having a sore throat and he was given a shot of something but he doesn't know what it was. Patient denies any chest pain patient denies shortness of breath per patient denies any other symptoms at this time. - Related Data Previous Rx's Medication Instructions Recorded Aspirin EC [Ecotrin Low Dose] 81 mg PO DAILY #30 tab 09/15/23 Atorvastatin [Lipitor] 80 mg PO HS #30 tab 09/15/23 Empagliflozin [Jardiance] 10 mg PO DAILY #30 tablet 09/15/23 Losartan [Cozaar] 12.5 mg PO HS #30 tab 09/15/23 Metoprolol Tartrate [Lopressor] 25 mg PO BID #60 tab 09/15/23 Nitroglycerin Sl Tabs [Nitrostat] 0.4 mg SUBLINGUAL Q5M PRN #100 tab 09/15/23 Ticagrelor [Brilinta] 90 mg PO BID #60 tab 09/15/23 predniSONE [Deltasone] 40 mg PO DAILY #6 tab 09/18/23 Allergies Allergy/AdvReac Type Severity Reaction Status Date / Time No Known Allergies Allergy Verified 09/18/23 11:07 Review of Systems ROS Statement: Those systems with pertinent positive or pertinent negative responses have been documented in the HPI. ROS Other: All systems not noted in ROS Statement are negative. Past Medical History Past Medical History: Coronary Artery Disease (CAD) History of Any Multi-Drug Resistant Organisms: None Reported Past Surgical History: Heart Catheterization With Stent Past Psychological History: No Psychological Hx Reported Smoking Status: Former smoker Past Alcohol Use History: None Reported Past Drug Use History: None Reported, Marijuana General Exam - General Exam Comments Initial Comments: GENERAL: Patient is well-developed and well-nourished. Patient is nontoxic and well- hydrated and is in no acute distress. ENT: Neck is soft and supple. No significant lymphadenopathy is noted. Patient's lips are swollen as is the tongue swollen EYES: The sclera were anicteric and conjunctiva were pink and moist. Extraocular movements were intact and pupils were equal round and reactive to light. Eyelids were unremarkable. PULMONARY: Unlabored respirations. Good breath sounds bilaterally. No audible rales rho nchi or wheezing was noted. CARDIOVASCULAR: There is a regular rate and rhythm without any murmurs gallops or rubs. ABDOMEN: Soft and nontender with normal bowel sounds. SKIN: Skin is clear with no lesions or rashes and otherwise unremarkable. NEUROLOGIC: Patient is alert and oriented x3. Cranial nerves II through XII are grossly intact. Motor and sensory are also intact. Normal speech, volume and content. Symmetrical smile. MUSCULOSKELETAL: Normal extremities with adequate strength and full range of motion. LYMPHATICS: No significant lymphadenopathy is noted PSYCHIATRIC: Normal psychiatric evaluation. Limitations: no limitations Course Vital Signs 09/18/23 11:02 Temperature 99.4 F Pulse Rate 81 Respiratory 20 Rate Blood Pressure 138/58 O2 Sat by Pulse 96 Oximetry Medical Decision Making - Medical Decision Making Was pt. sent in by a medical professional or institution (, PA, HAND PLUG SHAPER, urgent care, hospital, or detention...) When possible be specific @ -No Did you speak to anyone other than the patient for history (EMS, parent, family, police, friend...)? What history was obtained from this source @ -No Did you review nursing and triage notes (agree or disagree)? Why? @ -I reviewed and agree with nursing and triage notes Were old charts reviewed (outside hosp., previous admission, EMS record, old EKG, old radiological studies, urgent care reports/EKG's, detention records)? Report findings @ -No old charts were reviewed Differential Diagnosis (chest pain, altered mental status, abdominal pain women, abdominal pain men, vaginal bleeding, weakness, fever, dyspnea, syncope, headache, dizziness, GI bleed, back pain, seizure, CVA, palpatations, mental health, musculoskeletal)? @ -ALLERGIC reaction, angioedema, this is not all inclusive list EKG interpreted by me (3pts min.). @ -As above X-rays interpreted by me (1pt min.). @ -None done CT interpreted by me (1pt min.). @ -None done U/S interpreted by me (1pt. min.). @ -None done What testing was considered but not performed or refused? (CT, X-rays, U/S, labs)? Why? @ -None What meds were considered but not given or refused? Why? @ -None Did you discuss the management of the patient with other professionals (prof sadiqionals i.e. , PA, HAND PLUG SHAPER, lab, RT, psych nurse, social work program coordinator, concrete pipe maker, teacher, information systems security officer, case management social worker)? Give summary @ -I spoke with Dr. lara he agreed to the patient should stop Cozaar and follow-up with them this week Was smoking cessation discussed for >3mins.? @ -No Was critical care preformed (if so, how long)? @ -No Were there social determinants of health that impacted care today? How? (Homelessness, low income, unemployed, alcoholism, drug addiction, transport ation, low edu. Level, literacy, decrease access to med. care, correction, rehab)? @ -No Was there de-escalation of care discussed even if they declined (Discuss DNR or withdrawal of care, Hospice)? DNR status @ -No What co-morbidities impacted this encounter? (DM, HTN, Smoking, COPD, CAD, Cancer, CVA, ARF, Chemo, Hep., AIDS, mental health diagnosis, sleep apnea, morbid obesity)? @ -None Was patient admitted / discharged? Hospital course, mention meds given and route, prescriptions, significant lab abnormalities, going to OR and other pertinent info. @ -Patient is in no distress patient had no difficulty breathing. Patient was given Solu-Medrol and today and will be sent home on some low dose of prednisone and will follow-up with Dr. Patel this week and patient will also stop Cozaar Undiagnosed new problem with uncertain prognosis? @ -No Drug Therapy requiring intensive monitoring for toxicity (Heparin, Nitro, Insulin, Cardizem)? @ -No Were any procedures done? @ -No Diagnosis/symptom? @ -Angioedema Acute, or Chronic, or Acute on Chronic? @ -Acute Uncomplicated (without systemic symptoms) or Complicated (systemic symptoms)? @ -Uncomplicated Side effects of treatment? @ -No Exacerbation, Progression, or Severe Exacerbation? @ -No Poses a threat to life or bodily function? How? (Chest pain, [place], PA, pneumonia, PE, COPD, DKA, ARF, appy, cholecystitis, CVA, Diverticulitis, Homicidal, Suicidal, threat to staff... and all critical care pts) @ -No Disposition Clinical Impression: Angioedema Disposition: HOME SELF-CARE Condition: Good Additional Instructions: Patient should stop his Cozaar and follow-up with his primary medical care doctor. Patient should return to the emergency department as any difficulty breathing or worsening symptoms Prescriptions: predniSONE [Deltasone] 40 mg PO DAILY #6 tab Is patient prescribed a controlled substance at d/c from ED?: No Referrals: Francois Patel Jr, [Primary Care Provider] - 1-2 days Time of Disposition: 11:48
== END 2023-09-18 12:15 | disposition home or self-care (01) ==
LOC: EC 11:00
DX: T78.3XXA Angioneurotic edema, initial encounter (principal); I25.10 Atherosclerotic heart disease of native coronary artery without angina pectoris; F12.90 Cannabis use, unspecified, uncomplicated; Z87.891 Personal history of nicotine dependence; Z95.5 Presence of coronary angioplasty implant and graft
CPT/HCPCS: 99283; 96372; J2930

== ENCOUNTER → 2023-09-30 | Outpatient (CLI) | payer OTHER ==
[2023-09-30 10:07] LABS: African American GFR (CKD) >90 (>60 ml/min/1.73 sqM); Blood Urea Nitrogen 18 mg/dL (9-20); Non-African American GFR(CKD) >90 (>60 ml/min/1.73 sqM)
--- NOTE | 2023-09-30 13:54 | CT ---
EXAMINATION TYPE: CT angio abd aorta w/Runoff DATE OF EXAM: 09/30/2023 12:04 PM COMPARISON: Ultrasound 04/30/2023 HISTORY: peripheral vascular disease, rt leg blockage CT DLP: 2032.80 mGycm Automated exposure control for dose reduction was used. TECHNIQUE: Performed with IV Contrast, patient injected with 125 mL of Isovue 370. . FINDINGS: ABDOMEN AND PELVIS: There is diverticulosis of the colon with no evidence of obstruction. Appendix normal. Assessment kidneys limited due to motion artifact and no obvious hydronephrosis. Pancreas normal. Sandrita er and spleen demonstrate no definite abnormality. Small hiatal hernia. Bilateral adrenal gland thick ening most typical of benign hyperplasia. No free fluid or free air. No pathologic adenopathy. Multilevel hypertrophic degenerative changes of the spine. VASCULATURE: The aorta is of normal caliber. The celiac trunk and SMA are patent with mild atherosclerotic disease . Bilateral renal arteries are patent. The aorta demonstrates mild to moderate mixed soft and calcifi ed plaque distally. There is a mild atherosclerotic change of the common iliac arteries bilaterally with no significant s tenosis. Mild atherosclerotic changes of the external and mild to moderate changes of the internal il iac arteries bilaterally and no significant stenosis of the external iliac artery. Right lower extremity: Common femoral deep femoral are patent with mild disease but no significant stenosis. There is multifocal mild atherosclerotic plaque in the SFA. There is a focal area of significant sten osis of the SFA at the level of the distal thigh with additional multilevel disease. Additional 60-70 % stenosis is seen at the level of the distal thigh. Popliteal artery is patent with mild plaque and no significant stenosis. Anterior tibial artery demon strates mild atherosclerotic disease but is seen continuously to the foot to supply the dorsalis pedi s with no significant stenosis. The peroneal artery is seen continues to the level of the ankle appea rs to be patent. There is mild to moderate disease of the tibial peroneal trunk with 50% or less sten osis. There is a proximal mild atherosclerotic change of the posterior tibial artery. Posterior tibia l artery seen to be patent continuously to the level of the foot supplying the calcaneal branches. Left lower extremity: The common deep femoral arteries are patent with mild to moderate disease of the common femoral arter y and deep femoral artery but no significant stenosis. There is multifocal mild atherosclerotic change of the SFA most marked distally at the level of the d istal thigh. No significant stenosis is identified. Popliteal artery is patent. There is moderate dis ease of the tibioperoneal trunk approximately 40% narrowing but no significant stenosis. There is three-vessel runoff of the peroneal artery diminutive but seen to the level of the ankle. An terior tibial artery demonstrates no significant disease appears to be patent supplying the calcaneal branches in the foot. Posterior tibial artery is seen to contiguously to the level of the ankle wher e there is a focal severe stenosis. IMPRESSION: 1. Diffuse [id number]-zsyiygit disease of the distal aorta and bilateral iliac vasculature with no signi ficant stenosis. 2. There is multifocal mild disease of the SFA bilaterally. There are 2 focal stenosis within the dis zelda right SFA measure approximately 70%. 3. Significant greater than 70% stenosis distal left posterior tibial artery.
== END | disposition home or self-care (01) ==
LOC: RADCTMAIN 09:02
PROVIDERS: ATTEND Internal Medicine Interventional Cardiology
DX: I70.202 Unspecified atherosclerosis of native arteries of extremities, left leg (principal); I77.89 Other specified disorders of arteries and arterioles
CPT/HCPCS: 82565; 84520; 75635; 36415; Q9967

== ENCOUNTER → 2023-10-11 | Outpatient (CLI) | payer OTHER ==
[2023-10-11 20:59] LABS: HCT 38.3 % (39.6-50.0); HGB 13.4 g/dL (13.0-17.0); MCH 31.3 pg (27.0-32.0); MCV 89.5 FL (80.0-97.0); Mean Platelet Volume 11.5 FL (9.5-12.2); NRBC Per 100 WBC 0 X 10*3/uL (0.00-0.01); Platelet Count 317 X 10*3/uL (140-440); RBC 4.28 X 10*6/uL (4.40-5.60); RDW 12.5 % (11.5-14.5); WBC 10.22 X 10*3/uL (4.50-10.00)
[2023-10-11 22:08] LABS: Blood Urea Nitrogen 17.5 mg/dL (9.0-27.0); Carbon Dioxide 22.6 mmol/L (21.6-31.8); Chloride 104 mmol/L (96-109); Potassium 4.2 mmol/L (3.5-5.5); Sodium 140 mmol/L (135-145)
== END | disposition home or self-care (01) ==
LOC: LABPAT 14:31
PROVIDERS: ATTEND Internal Medicine Interventional Cardiology
DX: Z01.812 Encounter for preprocedural laboratory examination (principal); I25.2 Old myocardial infarction
CPT/HCPCS: 36415; 80051; 82565; 84520; 85027

== ENCOUNTER 2023-10-14 09:23 | Day surgery (SDC) | payer OTHER ==
[2023-10-11 11:58] VITALS: BMI 36.0
[~2023-10-14 09:23] MED LIST: ALPRAZolam 0.25 MG TAB PO PRN; ALPRAZolam 0.5 MG TAB PO PRN; ASPIRIN 325 MG TAB PO STA; ATORVASTATIN 80 MG TAB PO STA; HEPARIN SODIUM,PORCINE (1 ML) 2,500 UNIT in SODIUM CHLORIDE 0.9% 250 ML IRRIGATION PRN; HEPARIN SODIUM,PORCINE 10,000 UNIT in SODIUM CHLORIDE 0.9% 1,000 ML IRRIGATION PRN; NITROGLYCERIN SL TABS 0.4 MG TAB SUBLINGUAL PRN; SODIUM CHLORIDE 0.9% 1,000 ML in EMPTY BAG 1 BAG IV SCH
[2023-10-14 09:49] LABS: Glucose,Whole Blood 106 mg/dL (70-110)
[2023-10-14] MEDS ORDERED: ASPIRIN 81 MG ONE (09:54)
[2023-10-14 10:00] VITALS: RESP 18; TEMP 97.5
[2023-10-14] MEDS ORDERED: VERAPAMIL 2.5 MG/ML 2 ML AMP ONE (10:15)
[2023-10-14] MEDS ORDERED: HEPARIN SODIUM 1,000 UN/ML (10ML VL) ONE (10:16)
[2023-10-14] MEDS ORDERED: LIDOCAINE 1% INJ 10MG/ML (5 ML VIAL-PF) SQ ONE (10:32)
[2023-10-14] MEDS ORDERED: MIDAZOLAM 2 MG/2 ML VIAL IVP ONE (10:32)
[2023-10-14] MEDS: VERAPAMIL SYRINGE (5 MG/10 ML) INTRAARTER ONE ×2 (10:33→11:15)
[2023-10-14] MEDS ORDERED: TICAGRELOR 90 MG TAB ONE (11:07)
[2023-10-14] MEDS ORDERED: TICAGRELOR 90 MG TAB PO ONE (11:10)
[2023-10-14] MEDS ORDERED: IOPAMIDOL-370 100ML BTL INJ ONE (11:15)
--- NOTE | 2023-10-14 12:01 | CC ---
CARDIAC CATHETERIZATION REPORT PROCEDURES PERFORMED: 1. Coronary angiography of right coronary artery to check patency of the previously stented mid RCA. 2. PTCA and stenting of mid circumflex with 2 drug-eluting stents. PERFORMED BY: Dr. Queta Gomes. ANESTHESIA: Moderate conscious sedation time was 49 minutes. The patient was administered Versed. Oxygen saturation, hemodynamics, and EKG were monitored closely. CLINICAL INFORMATION: Mr. Misael Rothman is a 58-year-old gentleman with a known history of CAD who presented with an acute [id number] OR on September 13 and underwent stenting of totally occluded RCA on the . At that time, he had a circumflex lesion which was almost like a chronic occlusion in the midportion after a groove branch. He was brought in for elective PCI of circumflex and to check patency of RCA. All risks, benefits, and options were explained. The patient and understood all details and wished to proceed with the procedure. PROCEDURE NOTE: Under local anesthesia and strict aseptic precautions, a 6-Frisian introducer was placed in the right radial artery. I used a standard right Kelli catheter and with some manipulation, I got selective injection of the RCA which was widely patent with good flow. I then turned my attention to the circumflex. An XB 3.5 catheter was used to cannulate the left coronary artery. A combination of run-through wire and SuperCross 45 degree was used to cross the lesion, wire was kept distally. A 2.25 caliber 15 mm long NC Trek balloon was used to pre-dilate the lesion. I then deployed a 15 mm long 2.5 caliber Xience stent and noted that beyond the stent, there was still an area of narrowing and this was addressed with an additional stent of 12 mm length, but some of this stent was telescoped into the previous stent. This was a 2.5 caliber, 12 mm Xience stent. Both stents were deployed at 10 to 11 atmospheres. Good expansion was noted. Excellent angiographic result was achieved with remarkably good improvement in angiographic appearance and flow. The patient tolerated the procedure well. His ACT initially was over 300 to high and a repeat ACT was 214. I gave the patient a total of 7000 units of heparin and his weight is 105 kg. He also received additional dose of Brilinta. Excellent angiographic result without complication was achieved. The TR band was applied and saturation the fingers of the right hand was 98%. Details were discussed with the patient and son. I expect he will be discharged later on today and I will see him in the office on the . He will be on the same medications and I will also obtain an echocardiogram to assess LV function since it is almost 4 weeks. MORRIS / AYDIN: [id number] /
[2023-10-14] MEDS ORDERED: SODIUM CHLORIDE 0.9% 1,000 ML IV SCH (12:15)
[2023-10-14 15:44] VITALS: PULSE 74
[2023-10-14 16:06] VITALS: BP 113/65
--- NOTE | 2023-10-15 09:16 | CA ---
Transthoracic Echo Report Name: Misael Rothman Age: 58 Gender: M : 1965 Exam Date: 10/14/2023 13:25 Exam Location: [facility] Ht (in): 68 Wt (lb): 233 Ordering Physician: Morales Gomes MD ([id number]) Attending/Referring Phys: Counter Top Assembler Faiza Joyce RDCS Procedure CPT: Indications: LV FUNCTION/WALL MOTION Cardiac Hx: Technical Quality: Fair Contrast 1: Total Dose (mL): Contrast 2: Total Dose (mL): MEASUREMENTS (Male / Female) Normal Values 2D ECHO LV Diastolic Diameter PLAX 4.6 cm 4.2 - 5.9 / 3.9 - 5.3 cm LV Systolic Diameter PLAX 3.7 cm IVS Diastolic Thickness 1.5 cm 0.6 - 1.0 / 0.6 - 0.9 cm LVPW Diastolic Thickness 1.1 cm 0.6 - 1.0 / 0.6 - 0.9 cm LV Relative Wall Thickness 0.6 LA Volume 60.1 cm??? 18 - 58 / 22 - 52 cm??? LA Volume Index 26.2 cm???/m??? 16 - 28 cm???/m??? M-MODE Aortic Root Diameter MM 3.3 cm LA Systolic Diameter MM 3.7 cm LA Ao Ratio MM 1.1 AV Cusp Separation MM 1.4 cm DOPPLER AV Peak Velocity 166.6 cm/s AV Peak Gradient 11.1 mmHg AV Mean Velocity 106.8 cm/s AV Mean Gradient 5.5 mmHg AV Velocity Time Integral 33.3 cm LVOT Peak Velocity 148.8 cm/s LVOT Peak Gradient 8.9 mmHg LVOT Velocity Time Integral 26.6 cm MV Area PHT 2.3 cm??? Mitral E Point Velocity 94.7 cm/s Mitral A Point Velocity 100.9 cm/s Mitral E to A Ratio 0.9 MV Deceleration Time 327.7 ms MV E' Velocity 10.1 cm/s Mitral E to MV E' Ratio 9.3 TR Peak Velocity 177.9 cm/s TR Peak Gradient 12.7 mmHg Right Ventricular Systolic Press 17.7 mmHg FINDINGS Left Ventricle Moderately increased left ventricular wall thickness. Left ventricular cavity size normal.Inferior septal and inferior apical hypokinesis. Left ventricular ejection fraction is estimated at 45-50 %. Right Ventricle Normal right ventricular size and function. Right Atrium Normal right atrial size. Left Atrium Mildly increased left atrial volume. Mitral Valve Structurally normal mitral valve. Mild mitral annular calcification. Mild mitral regurgitation. Aortic Valve No aortic valve stenosis or regurgitation. Tricuspid Valve Structurally normal tricuspid valve. Mild tricuspid regurgitation. Pulmonic Valve Structurally normal pulmonic valve. Pericardium No pericardial effusion. Aorta Normal size aortic root and proximal ascending aorta. CONCLUSIONS Mild LV dysfunction with an ejection fraction of 45% There is inferoapical and inferoseptal hypokinesis suggestive of prior myocardial infarction Mild mitral regurgitation Previewed by: Dr. Juan Luis aKye MD (Electronically Signed) Final Date: 15 October 2023 09:15
== END 2023-10-14 16:06 | disposition home or self-care (01) ==
LOC: CATHCVL 09:23
PROVIDERS: ATTEND Internal Medicine Interventional Cardiology
DX: I25.2 Old myocardial infarction (principal); I25.10 Atherosclerotic heart disease of native coronary artery without angina pectoris; I25.82 Chronic total occlusion of coronary artery; Z95.5 Presence of coronary angioplasty implant and graft; I10 Essential (primary) hypertension; I73.9 Peripheral vascular disease, unspecified; E78.5 Hyperlipidemia, unspecified; E11.9 Type 2 diabetes mellitus without complications; F17.210 Nicotine dependence, cigarettes, uncomplicated; Z95.1 Presence of aortocoronary bypass graft; Z79.82 Long term (current) use of aspirin; Z79.899 Other long term (current) drug therapy
CPT/HCPCS: 93306; 93454; C9600; C1769 ×2; C1894; C1887 ×2; C1874 ×2; C1725; J2250; J2001; J1644; Q9967

== ENCOUNTER 2023-10-30 08:12 | Emergency (ER) | payer OTHER ==
[2023-10-30 08:33] VITALS: RESP 18; TEMP 98.1
--- NOTE | 2023-10-30 08:53 | ED ---
General Adult HPI - General Chief complaint: Extremity Injury, Upper Stated complaint: Fall-On Thinners, Hit Head/L Wrist Injury Time Seen by Provider: 10/30/23 08:20 Source: patient, RN notes reviewed Mode of arrival: ambulatory Limitations: no limitations - History of Present Illness Initial comments: 58-year-old male currently on Brilinta for crdiac stents resents to the emergency room for a chief complaint of fall. Patient states yesterday around noon he was on a ladder. His head was about 10 feet and his feet were about 4 feet. He fell and hit his head breaking his glasses. He did not lose consciousness. He does have left wrist and hand pain. He also has a right thigh pain. He can walk on his leg. He denies any other injuries.Patient has no other complaints at this time including shortness of breath, chest pain, abdominal pain, nausea or vomiting, headache, or visual changes. - Related Data Home Medications Medication Instructions Recorded Confirmed Metoprolol Tartrate [Lopressor] 25 mg PO HS 10/11/23 10/14/23 Metoprolol Tartrate [Lopressor] 50 mg PO QAM 10/11/23 10/14/23 amLODIPine [Norvasc] 5 mg PO DAILY 10/11/23 10/14/23 Previous Rx's Medication Instructions Recorded Aspirin EC [Ecotrin Low Dose] 81 mg PO DAILY #30 tab 09/15/23 Atorvastatin [Lipitor] 80 mg PO HS #30 tab 09/15/23 Empagliflozin [Jardiance] 10 mg PO DAILY #30 tablet 09/15/23 Nitroglycerin Sl Tabs [Nitrostat] 0.4 mg SUBLINGUAL Q5M PRN #100 tab 09/15/23 Ticagrelor [Brilinta] 90 mg PO BID #60 tab 09/15/23 Allergies Allergy/AdvReac Type Severity Reaction Status Date / Time ARB-Angiotensin Receptor Allergy Anaphylaxis, Verified 10/14/23 09:38 Antagonist tongue and mouth swelling Review of Systems ROS Statement: Those systems with pertinent positive or pertinent negative responses have been documented in the HPI. ROS Other: All systems not noted in ROS Statement are negative. Past Medical History Past Medical History: Coronary Artery Disease (CAD), Diabetes Mellitus, Hyperlipidemia, Myocardial Infarction ([place]) Additional Past Medical History / Comment(s): recent steroids for angioedema Rx to losartan in Sep 2023 Last Myocardial Infarction Date:: 09-13-23 History of Any Multi-Drug Resistant Organisms: None Reported Past Surgical History: Heart Catheterization With Stent Additional Past Surgical History / Comment(s): 3 cardiac stents Past Anesthesia/Blood Transfusion Reactions: No Reported Reaction, Family History of Problems w/ Anesthesia Additional Past Anesthesia/Blood Transfusion Reaction / Comment(s): brother had hard time waking up with anesthesia Date of Last Stent Placement:: 09-13-23 Past Psychological History: No Psychological Hx Reported Smoking Status: Never smoker Past Alcohol Use History: None Reported Past Drug Use History: None Reported - Past Family History Mother Family Medical History: Cancer Brother(s) Family Medical History: Cancer General Exam - General Exam Comments Initial Comments: Patient has edema and mild ecchymosis of the left wrist and hand. Tenderness to the dorsal left wrist. Radial pulse 2+. Capillary refill less than 2 seconds in the left hand. Limitations: no limitations General appearance: alert, in no apparent distress Head exam: Present: atraumatic. Absent: other (no hematomas or lacerations) Eye exam: Present: normal appearance, PERRL, EOMI. Absent: scleral icterus, conjunctival injection ENT exam: Present: normal exam, mucous membranes moist Neck exam: Present: normal inspection, full ROM. Absent: tenderness Respiratory exam: Present: normal lung sounds bilaterally. Absent: respiratory distress, wheezes Cardiovascular Exam: Present: regular rate, normal rhythm, normal heart sounds GI/Abdominal exam: Present: soft, normal bowel sounds. Absent: distended, tenderness Neurological exam: Present: alert, oriented X3, other (GCS 15) Course Vital Signs 10/30/23 08:15 Temperature 98.1 F Pulse Rate 65 Respiratory 18 Rate Blood Pressure 130/85 O2 Sat by Pulse 99 Oximetry Procedures - Orthopedic Splinting/Casting Injury #1 Side: right Upper Extremity Injury Location: short arm Upper Extremity Immobilizer: volar splint Additional Comments: NV status intact after splint applied Medical Decision Making - Medical Decision Making Was pt. sent in by a medical professional or institution (, PA, CLINICAL PROGRAM MANAGER, urgent care, hospital, or skilled nursing...) When possible be specific @ -[No] Did you speak to anyone other than the patient for history (EMS, parent, family, police, friend...)? What history was obtained from this source @ -sister Did you review nursing and triage notes (agree or disagree)? Why? @ -[I reviewed and agree with nursing and triage notes] Were old charts reviewed (outside hosp., previous admission, EMS record, old EKG, old radiological studies, urgent care reports/EKG's, skilled nursing records)? Report findings @ -[No old charts were reviewed] Differential Diagnosis (chest pain, altered mental status, abdominal pain women, abdominal pain men, vaginal bleeding, weakness, fever, dyspnea, syncope, headache, dizziness, GI bleed, back pain, seizure, CVA, palpatations, mental health)? @ -[not applicable] EKG interpreted by me (3pts min.). @ -none X-rays interpreted by me (1pt min.). @ -X-ray hand wrist and femur are all negative for acute fracture CT interpreted by me (1pt min.). @ -CT brain and C-spine negative for acute pathology U/S interpreted by me (1pt. min.). @ -[None done] What testing was considered but not performed or refused? (CT, X-rays, U/S, labs)? Why? @ -[None] What meds were considered but not given or refused? Why? @ -Pain medication however pain is tolerable Did you discuss the management of the patient with other professionals (professionals i.e. , PA, CLINICAL PROGRAM MANAGER, lab, RT, psych nurse, elementary school social worker, senior producer, teacher, chief privacy officer, case picker)? Give summary @ -[No] Was smoking cessation discussed for >3mins.? @ -[No] Was critical care preformed (if so, how long)? @ -[No] Were there social determinants of health that impacted care today? How? (Homelessness, low income, unemployed, alcoholism, drug addiction, transportation, low edu. Level, literacy, decrease access to med. care, intermediate, rehab)? @ -[No] Was there de-escalation of care discussed even if they declined (Discuss DNR or withdrawal of care, Hospice)? DNR status @ -[No] What co-morbidities impacted this encounter? (DM, HTN, Smoking, COPD, CAD, Cancer, CVA, ARF, Chemo, Hep., AIDS, mental health diagnosis, sleep apnea, morbid obesity)? @ -Heart disease, on blood thinners Was patient admitted / discharged? Hospital course, mention meds given and route, prescriptions, significant lab abnormalities, going to OR and other pertinent info. @ seen in room. Physical as documented. CT head and neck show no acute intracranial process or evidence of cervical spine fracture femur x-ray shows no acute osseous pathology. Wrist x-ray shows soft tissue swelling without evidence of acute fracture. Given edema splint was applied to the left wrist. Patient is stable for discharge home. he will follow up with primary care and orthopedics Undiagnosed new problem with uncertain prognosis? @ -[No] Drug Therapy requiring intensive monitoring for toxicity (Heparin, Nitro, Ins ulin, Cardizem)? @ -[No] Were any procedures done? @ -splint to left wrist Diagnosis/symptom? @ -left wrist pain, hand pain, right leg pain, head injury Acute, or Chronic, or Acute on Chronic? @ -acute Uncomplicated (without systemic symptoms) or Complicated (systemic symptoms)? @ -uncomplicated Side effects of treatment? @ -none Exacerbation, Progression, or Severe Exacerbation? @ -[No] Poses a threat to life or bodily function? How? (Chest pain, [place], [place], pneumonia, PE, COPD, DKA, ARF, appy, cholecystitis, CVA, Diverticulitis, Homicidal, Suicidal, threat to staff... and all critical care pts) @ -[No] Discussed with Dr Jenkins Disposition Clinical Impression: Head injury, Wrist injury, Leg pain Disposition: HOME SELF-CARE Condition: Good Instructions (If sedation given, give patient instructions): Wrist Injury (ED) Additional Instructions: Please follow up with primary care and orthopedics. You can tell orthopedics no fracture was seen on x-ray however you were splinted given concern for occult fracture. Return to the emergency room for any worsening symptoms. Is patient prescribed a controlled substance at d/c from ED?: No Referrals: Francois Patel Jr, DO [Primary Care Provider] - 1-2 days Ra Raymond MD [Medical Doctor] - 1-2 days Time of Disposition: 09:41
--- NOTE | 2023-10-30 09:13 | XR ---
EXAMINATION TYPE: XR hand complete LT, XR wrist complete LT DATE OF EXAM: 10/30/2023 9:09 AM CLINICAL INDICATION:Male, 58 years old with history of fall; H COMPARISON: None TECHNIQUE: XR hand complete LT, XR wrist complete LT Frontal, lateral and oblique views were obtained . FINDINGS: Normal alignment of the visualized joints. No acute osseous pathology is identified. There is soft tissue swelling over the dorsal hand. Remote injury near the ulnar styloid process with calc ified body present. IMPRESSION: Soft tissue swelling without evidence of acute fracture.
--- NOTE | 2023-10-30 09:14 | XR ---
EXAMINATION TYPE: XR femur RT DATE OF EXAM: 10/30/2023 9:09 AM CLINICAL INDICATION:Male, 58 years old with history of fall; COMPARISON: None TECHNIQUE: XR femur RT examined in Frontal and lateral projections. FINDINGS: No evidence of acute osseous pathology, joint dislocation, or soft tissue swelling. Mild d egeneration changes with osteophyte formation of the superior acetabulum and tibial plateau, femoral condyles and patella. IMPRESSION: 1. No acute osseous pathology. 2. Mild right hip and right knee osteoarthrosis.
--- NOTE | 2023-10-30 09:25 | CT ---
EXAMINATION TYPE: CT brain cspine wo con CT DLP: 1921.9 mGycm, Automated exposure control for dose reduction was used. DATE OF EXAM: 10/30/2023 9:11 AM COMPARISON: None. CLINICAL INDICATION:Male, 58 years old with history of fall from ladder on thinners yesterday; Fall f rom ladder yesterday, on thinners. TECHNIQUE: Brain: Multiple axial CT images of the brain were obtained without IV contrast. Cspine: Axial CT images from the skull base to the inferior aspect of T2 we obtained without intraven ous contrast. Coronal and sagittal reformatted images were also reviewed. FINDINGS: Brain: Extra-axial spaces: No abnormal extra-axial fluid collections. Ventricular system: Within normal limits Cerebral parenchyma: No acute intraparenchymal hemorrhage or mass effect. The hardwick-white junction is well differentiated. Cerebellum: The cerebellar tonsils extend below the foramen magnum up to 3 mm. Mass effect: No evidence of midline shift. Intracranial vasculature: Atherosclerotic calcifications of the intracranial vessels. Soft tissues: Normal. Calvarium/osseous structures: No depressed skull fracture. Paranasal sinuses and mastoid air cells: Clear. Visualized orbits: Orbital contents are intact. Cervical spine: Fracture: None. Osseous structures: Multilevel degenerative disc disease changes with endplate spurring and disc oste ophyte complex's. Vertebral alignment: Within normal limits. Spinal canal/Neural Foramina: No evidence of significant spinal canal narrowing. No evidence for sign ificant neural foraminal stenosis. Neck soft tissues: Prevertebral soft tissues are within normal limits. Other: The airway is patent. The lung apices are clear. IMPRESSION: 1. No acute intracranial process. 2. Mild cerebellar tonsillar ectopia. 3. No evidence of cervical spine fracture. 4. Mild multilevel degenerative disc disease.
[2023-10-30 10:09] VITALS: BP 123/76; PULSE 59
== END 2023-10-30 10:02 | disposition home or self-care (01) ==
LOC: EC 08:12
DX: S09.90XA Unspecified injury of head, initial encounter (principal); S60.912A Unspecified superficial injury of left wrist, initial encounter; M79.604 Pain in right leg; E11.9 Type 2 diabetes mellitus without complications; I25.10 Atherosclerotic heart disease of native coronary artery without angina pectoris; I25.2 Old myocardial infarction; Z88.8 Allergy status to other drugs, medicaments and biological substances; Z79.899 Other long term (current) drug therapy; W01.198A Fall on same level from slipping, tripping and stumbling with subsequent striking against other object, initial encounter
CPT/HCPCS: 29125; 70450; 72125; 99284

== ENCOUNTER 2023-11-07 13:08 | Emergency (ER) | payer OTHER ==
--- NOTE | 2023-11-07 13:52 | ED ---
Lower Extremity Injury HPI - General Chief Complaint: Extremity Injury, Lower Stated Complaint: Fall-right side pain Time Seen by Provider: 11/07/23 13:25 Source: patient, RN notes reviewed Mode of arrival: ambulatory Limitations: no limitations - History of Present Illness Initial Comments: 58-year-old male presents emergency Department chief complaint of right ankle pain, right leg swelling. Patient states he felt the latter 90s ago. He was evaluated in emergency department for this. He states he started having bruising on his right leg and now significant swelling. He states he developed right ankle pain 4 days after the fall he states he is bruising to his right groin, right calf region. Patient states she also has ongoing swelling of his left wrist hand and fingers. He states his third and fourth digit hardwood secondary to swelling - Related Data Home Medications Medication Instructions Recorded Confirmed Metoprolol Tartrate [Lopressor] 25 mg PO HS 10/11/23 10/14/23 Metoprolol Tartrate [Lopressor] 50 mg PO QAM 10/11/23 10/14/23 amLODIPine [Norvasc] 5 mg PO DAILY 10/11/23 10/14/23 Previous Rx's Medication Instructions Recorded Aspirin EC [Ecotrin Low Dose] 81 mg PO DAILY #30 tab 09/15/23 Atorvastatin [Lipitor] 80 mg PO HS #30 tab 09/15/23 Empagliflozin [Jardiance] 10 mg PO DAILY #30 tablet 09/15/23 Nitroglycerin Sl Tabs [Nitrostat] 0.4 mg SUBLINGUAL Q5M PRN #100 tab 09/15/23 Ticagrelor [Brilinta] 90 mg PO BID #60 tab 09/15/23 Allergies Allergy/AdvReac Type Severity Reaction Status Date / Time ARB-Angiotensin Receptor Allergy Anaphylaxis, Verified 11/07/23 13:24 Antagonist tongue and mouth swelling Review of Systems ROS Statement: Those systems with pertinent positive or pertinent negative responses have been documented in the HPI. ROS Other: All systems not noted in ROS Statement are negative. Past Medical History Past Medical History: Coronary Artery Disease (CAD), Diabetes Mellitus, Hyperlipidemia, Myocardial Infarction ([place]) Additional Past Medical History / Comment(s): recent steroids for angioedema Rx to losartan in Sep 2023 Last Myocardial Infarction Date:: 09-13-23 History of Any Multi-Drug Resistant Organisms: None Reported Past Surgical History: Heart Catheterization With Stent Additional Past Surgical History / Comment(s): 3 cardiac stents Past Anesthesia/Blood Transfusion Reactions: No Reported Reaction, Family History of Problems w/ Anesthesia Additional Past Anesthesia/Blood Transfusion Reaction / Comment(s): brother had hard time waking up with anesthesia Date of Last Stent Placement:: 09-13-23 Past Psychological History: No Psychological Hx Reported Smoking Status: Never smoker Past Alcohol Use History: None Reported Past Drug Use History: None Reported - Past Family History Mother Family Medical History: Cancer Brother(s) Family Medical History: Cancer General Exam Limitations: no limitations General appearance: alert, in no apparent distress Head exam: Present: atraumatic, normocephalic, normal inspection Respiratory exam: Present: normal lung sounds bilaterally. Absent: respiratory distress, wheezes, rales, rhonchi, stridor Cardiovascular Exam: Present: regular rate, normal rhythm, normal heart sounds. Absent: systolic murmur, diastolic murmur, rubs, gallop, clicks Extremities exam: Present: other (right ankle tenderness over medial aspect, there is significant swelling of the whole leg with ecchymosis noted, there is palpable pulses equal bilaterally) Neurological exam: Present: alert, oriented X3 Course Vital Signs 11/07/23 13:22 Temperature 98.3 F Pulse Rate 74 Respiratory 18 Rate Blood Pressure 133/78 O2 Sat by Pulse 97 Oximetry Medical Decision Making - Medical Decision Making Was pt. sent in by a medical professional or institution (PIPER [place], DISTRICT SCOUT EXECUTIVE, urgent care, hospital, or alf...) When possible be specific @ -No Did you speak to anyone other than the patient for history (EMS, parent, family, police, friend...)? What history was obtained from this source @ -No Did you review nursing and triage notes (agree or disagree)? Why? @ -I reviewed and agree with nursing and triage notes Were old charts reviewed (outside hosp., previous admission, EMS record, old EKG, old radiological studies, urgent care reports/EKG's, alf records)? Report findings @ -Reviewed recent imaging Differential Diagnosis (chest pain, altered mental status, abdominal pain women, abdominal pain men, vaginal bleeding, weakness, fever, dyspnea, syncope, headache, dizziness, GI bleed, back pain, seizure, CVA, palpatations, mental health, musculoskeletal)? @ -DVT, leg swelling, ankle sprain, leg fracture EKG interpreted by me (3pts min.). @ -[None X-rays interpreted by me (1pt min.). @ -X-ray right ankle shows no acute fracture soft tissue swelling CT interpreted by me (1pt min.). @ -None done U/S interpreted by me (. 1pt. min.). @ -Ultrasound venous Doppler right no acute DVT. What testing was considered but not performed or refused? (CT, X-rays, U/S, labs)? Why? @ -None What meds were considered but not given or refused? Why? @ -None Did you discuss the management of the patient with other professionals (professionals i.e. DrWilma, PA, DISTRICT SCOUT EXECUTIVE, lab, RT, psych nurse, group social worker, reproductive surgeon, teacher, corporate officer, correctional counselor/case manager)? Give summary @ -No Was smoking cessation discussed for >3mins.? @ -No Was critical care preformed (if so, how long)? @ -No Were there social determinants of health that impacted care today? How? (Homelessness, low income, unemployed, alcoholism, drug addiction, transportation, low edu. Level, literacy, decrease access to med. care, senior living, rehab)? @ -No Was there de-escalation of care discussed even if they declined (Discuss DNR or withdrawal of care, Hospice)? DNR status @ -No What co-morbidities impacted this encounter? (DM, HTN, Smoking, COPD, CAD, C[place], CVA, ARF, Chemo, Hep., AIDS, mental health diagnosis, sleep apnea, morbid obesity)? @ -None Was patient admitted / discharged? Hospital course, mention meds given and route, prescriptions, significant lab abnormalities, going to OR and other pertinent info. @ -Discharge imaging including x-ray, all*negative. Patient has right leg swelling secondary to trauma. He has normal pulses he has close follow-up will be discharged in stable condition return parameters discussed she is advised to wear compression stocking. Undiagnosed new problem with uncertain prognosis? @ -No Drug Therapy requiring intensive monitoring for toxicity (Heparin, Nitro, Insulin, Cardizem)? @ -No Were any procedures done? @ -No Diagnosis/symptom? @ -Right leg edema, right ankle sprain Acute, or Chronic, or Acute on Chronic? @ -[Acute Uncomplicated (without systemic symptoms) or Complicated (systemic symptoms)? @ -Uncomplicated Side effects of treatment? @ -No Exacerbation, Progression, or Severe Exacerbation? @ -No Poses a threat to life or bodily function? How? (Chest pain, [place], [place], pneumonia, PE, COPD, DKA, ARF, appy, cholecystitis, CVA, Diverticulitis, Homicidal, Suicidal, threat to staff... and all critical care pts) @ -No Disposition Clinical Impression: Leg edema, right, Right ankle sprain Disposition: HOME SELF-CARE Condition: Stable Instructions (If sedation given, give patient instructions): Ankle Sprain (ED) Additional Instructions: Please return to the Emergency Department if symptoms worsen or any other concerns. Is patient prescribed a controlled substance at d/c from ED?: No Referrals: Francois Patel Jr, DO [Primary Care Provider] - 1-2 days Time of Disposition: 14:23
--- NOTE | 2023-11-07 14:12 | XR ---
EXAMINATION TYPE: XR ankle complete RT DATE OF EXAM: 11/07/2023 COMPARISON: NONE HISTORY: 58-year-old male pain and bruising TECHNIQUE: 3 views FINDINGS: There is circumferential soft tissue swelling. Vascular calcifications. Bony spurring dorsa l talonavicular joint. [id number] sized plantar heel spur. Some degenerative spurring anterior tibiotalar joint. Ankle mortise is congruent with preservation of the distal tibiofibular overlap. N o acute fracture, subluxation, or dislocation seen. IMPRESSION: Circumferential soft tissue swelling. Minimal degenerative spurring anterior ankle joint. No acute os seous abnormality seen.
--- NOTE | 2023-11-07 14:14 | US ---
EXAMINATION TYPE: US venous doppler duplex LE RT DATE OF EXAM: 11/07/2023 1:32 PM COMPARISON: NONE CLINICAL INDICATION: Male, 58 years old with history of pain; Leg pain after fall off of ladder 10/30 SIDE PERFORMED: Right TECHNIQUE: The lower extremity deep venous system is examined utilizing real time linear array sonog jenny with graded compression, doppler sonography and color-flow sonography. VESSELS IMAGED: Common Femoral Vein Deep Femoral Vein Greater Saphenous Vein * Femoral Vein Popliteal Vein Small Saphenous Vein * Proximal Calf Veins (* superficial vessels) Right Leg: Negative for DVT Volcanology Teacher notes: Targeted scanning at ankle reveals soft tissue edema. IMPRESSION: 1. No evidence for DVT within the right lower extremity imaged from the groin to the upper calf. 2. Soft tissue swelling noted while scanning at the ankle.
[2023-11-07 14:50] VITALS: BP 126/78; PULSE 69; RESP 16; TEMP 98.1
== END 2023-11-07 15:07 | disposition home or self-care (01) ==
LOC: EC 13:08
DX: S93.401A Sprain of unspecified ligament of right ankle, initial encounter (principal); I25.10 Atherosclerotic heart disease of native coronary artery without angina pectoris; E11.9 Type 2 diabetes mellitus without complications; I25.2 Old myocardial infarction; Z79.899 Other long term (current) drug therapy; Z88.8 Allergy status to other drugs, medicaments and biological substances; W18.30XA Fall on same level, unspecified, initial encounter
CPT/HCPCS: 99284

== ENCOUNTER → 2023-11-12 | Outpatient (CLI) | payer OTHER ==
[2023-11-12 19:11] LABS: HCT 39.8 % (39.6-50.0); HGB 13.5 g/dL (13.0-17.0); MCH 31.5 pg (27.0-32.0); MCHC 33.9 g/dL (32.0-37.0); MCV 92.8 FL (80.0-97.0); Mean Platelet Volume 10.9 FL (9.5-12.2); NRBC Per 100 WBC 0 X 10*3/uL (0.00-0.01); Platelet Count 371 X 10*3/uL (140-440); RBC 4.29 X 10*6/uL (4.40-5.60)
[2023-11-12 19:24] LABS: Blood Urea Nitrogen 14.6 mg/dL (9.0-27.0); Carbon Dioxide 24.8 mmol/L (21.6-31.8); Chloride 102 mmol/L (96-109); Potassium 4.6 mmol/L (3.5-5.5); Sodium 139 mmol/L (135-145)
== END | disposition home or self-care (01) ==
LOC: LABPAT 13:52
PROVIDERS: ATTEND Internal Medicine Interventional Cardiology
DX: Z01.812 Encounter for preprocedural laboratory examination (principal); I70.213 Atherosclerosis of native arteries of extremities with intermittent claudication, bilateral legs
CPT/HCPCS: 80051; 82565; 84520; 85027

== ENCOUNTER 2023-11-17 07:48 | Day surgery (SDC) | payer OTHER ==
[~2023-11-17 07:48] MED LIST changes: -ALPRAZolam 0.5 MG TAB PO PRN; +ASPIRIN 325 MG TAB PO PRN; -ASPIRIN 325 MG TAB PO STA; -ATORVASTATIN 80 MG TAB PO STA; -NITROGLYCERIN SL TABS 0.4 MG TAB SUBLINGUAL PRN; +SODIUM CHLORIDE 0.9% 1,000 ML in EMPTY BAG 1 BAG IV ONE; -SODIUM CHLORIDE 0.9% 1,000 ML in EMPTY BAG 1 BAG IV SCH; +ZOLPIDEM 5 MG TAB PO PRN
[2023-11-17 09:11] LABS: Glucose,Whole Blood 110 mg/dL (70-110)
[2023-11-17] MEDS ORDERED: MIDAZOLAM 2 MG/2 ML VIAL IVP ONE (10:43)
[2023-11-17] MEDS ORDERED: LIDOCAINE 1% INJ 10MG/ML (20 ML MDV) SQ ONE (10:44)
[2023-11-17] MEDS: HEPARIN SODIUM 1,000 UN/ML (10ML VL) IV ONE ×2 (10:49→11:15)
[2023-11-17] MEDS: fentaNYL (PF) 50 MCG/ML 2 ML AMP IVP ONE ×2 (11:08→11:17)
[2023-11-17] MEDS ORDERED: CLOPIDOGREL 75 MG TAB PO ONE (11:17)
[2023-11-17] MEDS ORDERED: NITROGLYCERIN 1000MCG/10ML SYRINGE INTRAARTER ONE (11:19)
[2023-11-17] MEDS ORDERED: niCARdipine Syringe (1,000 mcg/10 mL) INTRAARTER ONE (11:20)
[2023-11-17] MEDS ORDERED: IOPAMIDOL-250 100ML BTL INTRAARTER ONE (11:20)
[2023-11-17] MEDS ORDERED: NALOXONE 0.4 MG/ML 1 ML VIAL IVP PRN (11:36)
[2023-11-17] MEDS ORDERED: NITROGLYCERIN SL TABS 0.4 MG TAB SUBLINGUAL PRN (11:38)
--- NOTE | 2023-11-17 11:43 | P.PCN ---
Date of Procedure: 11/17/23 Operative Findings: PERCUTANEOUS PERIPHERAL INTERVENTION Performing physician Jaime Nunes M.D. Procedure performed 1. Successful balloon angioplasty of the right SFA with reduction of stenosis from 99.9% to 0% 2. Adjunctive use intravascular imaging and atherectomy using the Hawk one device 3. Right lower extremity angiogram and left common femoral artery angiogram 4. Ultrasound guided access of the left common femoral artery Indication Right lower extremity intermittent claudications a 68-year-old gentleman who underwent a CT at that revealed critical right SFA Approach Left common femoral artery Complications None Level of sedation Moderate with a sedation time of 40 minutes Procedure description After obtaining an informed consent the patient was brought to the cardiac company laborer. The left common femoral artery was cannulated using micropuncture technique under ultrasound guidance the micropuncture wire passed easily then I placed a 6-Omani 70 cm sheath at the left common femoral artery. Subsequently anticoagulation was initiated using heparin with continuous ACT monitoring. Subsequently I did selective right SFA using 035 stiff Glidewire with a backup support of 5-Omani rim catheter then the wire was advanced to the right SFA followed by the catheter followed by the sheath. That was performed under fluoroscopy guidance. After that right lower extremity angiogram was performed and showed three-vessel run off below the knee on the right side with critical right SFA disease. I did cross the lesion and arthritis of using all 4 wire that I did intravascular ultrasound which showed a diameter around 6 mm with a soft plaque. For that reason I did atherectomy using the Hawk one device with extraction of significant plaque. After that I did balloon angioplasty using 6 mm balloon. Final angiogram showed good angiographic results and the procedure was completed was no complication. After that I did exchange the long sheath into short sheath using 035 wire. Finally selective left common femoral artery angiogram was performed. The procedure was completed was no complication Postprocedure management 1. Dual antiplatelet therapy 2. Aggressive cholesterol control 3. Risk factors modification 4. Follow-up with the patient
[2023-11-17] MEDS ORDERED: SODIUM CHLORIDE 0.9% 1,000 ML in EMPTY BAG 1 BAG IV SCH (11:45)
[2023-11-17 14:32] LABS: Glucose,Whole Blood 86 mg/dL (70-110)
[2023-11-17] MEDS ORDERED: HYDROcodone/APAP 5-325MG 1 EACH TAB PO PRN (15:21)
[2023-11-17 16:28] VITALS: RESP 16; TEMP 98
[2023-11-17 16:32] LABS: Glucose,Whole Blood 111 mg/dL (70-110)
[2023-11-17 18:59] VITALS: BP 117/76; PULSE 60
[2023-11-17] MEDS ORDERED: LOSARTAN 25 MG TAB PO SCH (21:00)
[2023-11-17] MEDS ORDERED: ATORVASTATIN 80 MG TAB PO SCH (21:00)
[2023-11-17] MEDS ORDERED: TICAGRELOR 90 MG TAB PO SCH (21:00)
[2023-11-17] MEDS ORDERED: METOPROLOL TARTRATE 25 MG TAB PO SCH (21:00)
[2023-11-18] MEDS ORDERED: amLODIPine 5 MG TAB PO SCH (09:00)
[2023-11-18] MEDS ORDERED: METOPROLOL TARTRATE 50 MG TAB PO SCH (09:00)
[2023-11-18] MEDS ORDERED: CLOPIDOGREL 75 MG TAB PO SCH (09:00)
[2023-11-18] MEDS ORDERED: ASPIRIN 81 MG PO SCH ×2 (09:00)
[2023-11-18] MEDS ORDERED: DAPAGLIFLOZIN PROPANEDIOL 5 MG TABLET PO SCH (09:00)
--- NOTE | 2023-11-19 08:26 | IR ---
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 COMPARISON: None. FINDINGS: Fluoroscopic guidance was provided during lower extremity percutaneous angioplasty procedu re performed by Dr. Nunes. A total of 8.1 minutes of fluoroscopic time was utilized during the proced ure and 281 spot images was acquired. Please refer to procedure note for further details. IMPRESSION: As Above. TOTAL DAP = 36.5873 Gy x cm2
== END 2023-11-17 22:52 | disposition left against medical advice (07) ==
LOC: CATHCVL 07:48 → 3SCARD 11:23 → CATHCVL 22:52
PROVIDERS: ATTEND Internal Medicine Interventional Cardiology
DX: I73.9 Peripheral vascular disease, unspecified (principal); I10 Essential (primary) hypertension; E78.5 Hyperlipidemia, unspecified; Z79.82 Long term (current) use of aspirin; Z79.899 Other long term (current) drug therapy; Z88.8 Allergy status to other drugs, medicaments and biological substances; Z87.891 Personal history of nicotine dependence
CPT/HCPCS: 37225; 76937; 37252; C1894 ×2; C1769 ×4; C1725; C1714; C1753; C2623; J2250; J2001; J3010; J1644; Q9966; J2305

== ENCOUNTER 2024-08-22 16:08 | Emergency (ER) | payer OTHER ==
--- NOTE | 2024-08-22 16:58 | XR ---
EXAMINATION TYPE: XR knee complete RT DATE OF EXAM: 08/22/2024 COMPARISON: NONE HISTORY: 59-year-old male knee pain TECHNIQUE: 3 views FINDINGS: There is a small joint effusion. Mild anterior infrapatellar soft tissue swelling. Extensor mechanism appears intact. Vascular calcifications and a couple small phleboliths noted. No acute fra cture, subluxation, or dislocation. IMPRESSION: 1. Small knee joint effusion. Some anterior soft tissue swelling also present. 2. No acute osseous abnormality seen. If concern for occult injury or internal derangement, MRI can b e considered. [facility], , 08/22/2024 4:56 PM
--- NOTE | 2024-08-22 17:05 | ED ---
Extremity Problem HPI - General Chief complaint: Extremity Problem,Nontraumatic Stated complaint: knee pain Time Seen by Provider: 08/22/24 16:20 Source: patient, RN notes reviewed Mode of arrival: ambulatory Limitations: no limitations - History of Present Illness Initial comments: This is a 59-year-old male presents emergency department chief complaint of worsening right knee pain. States that over the past 4 to 6 weeks his right knee has been causing him more pain that is exacerbated with prolonged standing, climbing stairs, flexion and extension. The knee brace that he wears at home. Patient states that he does not like to take medications and he has only attempted to take Tylenol and Motrin sparingly over this time. He denies any known recent injuries or falls however states that approximately 1 year ago he did fall off a ladder but does not remember injuring his knee at this time. Denies previous surgeries to the knee. Denies fevers, chills, nausea, vomiting. - Related Data Home Medications Medication Instructions Recorded Confirmed Metoprolol Tartrate [Lopressor] 25 mg PO HS 10/11/23 11/17/23 Metoprolol Tartrate [Lopressor] 50 mg PO QAM 10/11/23 11/17/23 Losartan [Cozaar] 25 mg PO HS 11/11/23 11/17/23 Ticagrelor [Brilinta] 90 mg PO BID 11/11/23 11/17/23 amLODIPine BESYLATE 5 mg PO DAILY 11/11/23 11/17/23 Previous Rx's Medication Instructions Recorded Aspirin EC [Ecotrin Low Dose] 81 mg PO DAILY #30 tab 09/15/23 Atorvastatin [Lipitor] 80 mg PO HS #30 tab 09/15/23 Empagliflozin [Jardiance] 10 mg PO DAILY #30 tablet 09/15/23 Nitroglycerin Sl Tabs [Nitrostat] 0.4 mg SUBLINGUAL Q5M PRN #100 tab 09/15/23 Meloxicam [Mobic] 7.5 mg PO DAILY #14 tab 08/22/24 Allergies Allergy/AdvReac Type Severity Reaction Status Date / Time ARB-Angiotensin Receptor Allergy Anaphylaxis, Verified 11/17/23 08:59 Antagonist tongue and mouth swelling Review of Systems ROS Statement: Those systems with pertinent positive or pertinent negative responses have been documented in the HPI. ROS Other: All systems not noted in ROS Statement are negative. Past Medical History Past Medical History: Coronary Artery Disease (CAD), Diabetes Mellitus, Hyperlipidemia, Hypertension, Myocardial Infarction ([place]), Vascular Disorder Additional Past Medical History / Comment(s): recent steroids for angioedema Rx to losartan in Sep 2023 Last Myocardial Infarction Date:: 09-13-23 History of Any Multi-Drug Resistant Organisms: None Reported Past Surgical History: Heart Catheterization With Stent Additional Past Surgical History / Comment(s): 5 cardiac stents Past Anesthesia/Blood Transfusion Reactions: Family History of Problems w/ Anesthesia Additional Past Anesthesia/Blood Transfusion Reaction / Comment(s): brother had hard time waking up with anesthesia Date of Last Stent Placement:: 09-13-23 Past Psychological History: No Psychological Hx Reported Smoking Status: Former smoker Past Alcohol Use History: None Reported Past Drug Use History: None Reported - Past Family History Mother Family Medical History: Cancer Brother(s) Family Medical History: Cancer General Exam Limitations: no limitations Eye exam: Present: normal appearance, PERRL, EOMI. Absent: scleral icterus, conjunctival injection, periorbital swelling Neck exam: Present: normal inspection. Absent: tenderness, meningismus, lymphadenopathy Respiratory exam: Present: normal lung sounds bilaterally. Absent: respiratory distress, wheezes, rales, rhonchi, stridor Cardiovascular Exam: Present: regular rate, normal rhythm, normal heart sounds. Absent: systolic murmur, diastolic murmur, rubs, gallop, clicks GI/Abdominal exam: Present: soft, normal bowel sounds. Absent: distended, tenderness, guarding, rebound, rigid Right Knee exam: Present: full ROM (pain with ROM), tenderness, swelling, effusion. Absent: crepitus, dislocation, erythema Neurovascular tendon exam: Present: no vascular compromise. Absent: pulse deficit Gait: observed and normal Back exam: Present: normal inspection Skin exam: Present: warm, dry, intact, normal color. Absent: rash Course Vital Signs 08/22/24 08/22/24 16:12 17:35 Temperature 97.9 F 98.0 F Pulse Rate 63 61 Respiratory 18 20 Rate Blood Pressure 143/82 138/84 O2 Sat by Pulse 96 97 Oximetry Medical Decision Making - Medical Decision Making Was pt. sent in by a medical professional or institution (, PA, TENNIS NET MAKER, urgent care, hospital, or shelter...) When possible be specific @ -No Did you speak to anyone other than the patient for history (EMS, parent, family, police, friend...)? What history was obtained from this source @ -No Did you review nursing and triage notes (agree or disagree)? Why? @ -I reviewed and agree with nursing and triage notes Were old charts reviewed (outside hosp., previous admission, EMS record, old EKG, old radiological studies, urgent care reports/EKG's, shelter records)? Report findings @ -No old charts were reviewed Differential Diagnosis (chest pain, altered mental status, abdominal pain women, abdominal pain men, vaginal bleeding, weakness, fever, dyspnea, syncope, headache, dizziness, GI bleed, back pain, seizure, CVA, palpatations, mental health, musculoskeletal)? @ -Differential Musculoskeletal Muscular strain, contusion, ligament sprain, fracture, arthritis, septic arthritis, bursitis, cellulitis, muscle spasm, nerve compression, DVT, arterial occlusion, herpes zoster, electrolyte abnormality, tumor.... This is not meant to be in all inclusive list EKG interpreted by me (3pts min.). @ -None X-rays interpreted by me (1pt min.). @ -X-ray of the right knee remarkable for small joint knee effusion with anterior soft tissue swelling present without acute osseous abnormality noted. CT interpreted by me (1pt min.). @ -None done U/S interpreted by me (1pt. min.). @ -None done What testing was considered but not performed or refused? (CT, X-rays, U/S, labs)? Why? @ -None What meds were considered but not given or refused? Why? @ -None Did you discuss the management of the patient with other professionals (professionals i.e. , PA, TENNIS NET MAKER, lab, RT, psych nurse, executive secretary social welfare, rn invasive, teacher, public safety officer, case making machine operator)? Give summary @ -No Was smoking cessation discussed for >3mins.? @ -No Was critical care preformed (if so, how long)? @ -No Were there social determinants of health that impacted care today? How? (Homelessness, low income, unemployed, alcoholism, drug addiction, transportation, low edu. Level, literacy, decrease access to med. care, nursing home, rehab)? @ -No Was there de-escalation of care discussed even if they declined (Discuss DNR or withdrawal of care, Hospice)? DNR status @ -No What co-morbidities impacted this encounter? (DM, HTN, Smoking, COPD, CAD, Cancer, CVA, ARF, Chemo, Hep., AIDS, mental health diagnosis, sleep apnea, morbid obesity)? @ -None Was patient admitted / discharged? Hospital course, mention meds given and route, prescriptions, significant lab abnormalities, going to OR and other pertinent info. @ -Discharge. 59-year-old male with right knee pain. On examination patient noted to have vitals soft tissue swelling over the right knee and pain to palpation over the medial and lateral knee. Patient has full range of motion however states that this exacerbates his pain. Patient is neurovascular tact. X-ray negative for acute osseous abnormality with some anterior soft tissue swelling noted. Patient provided with dose of Toradol emergency department today prescription for Mobic to take as needed for pain. Recommend that he follow-up outpatient with either his primary care provider provided orthopedic shoes salesperson for further evaluation of knee pain. All questions answered at bedside and strict return parameters discussed with the patient he is verbalized understanding. Case discussed with Dr. Chery Undiagnosed new problem with uncertain prognosis? @ -No Drug Therapy requiring intensive monitoring for toxicity (Heparin, Nitro, Insulin, Cardizem)? @ -No Were any procedures done? @ -No Diagnosis/symptom? @ -Right knee pain Acute, or Chronic, or Acute on Chronic? @ -Acute Uncomplicated (without systemic symptoms) or Complicated (systemic symptoms)? @ -Uncomplicated Side effects of treatment? @ -No Exacerbation, Progression, or Severe Exacerbation? @ -No Poses a threat to life or bodily function? How? (Chest pain, [place], [place], pneumonia, PE, COPD, DKA, ARF, appy, cholecystitis, CVA, Diverticulitis, Homicidal, Suicidal, threat to staff... and all critical care pts) @ -No Disposition Clinical Impression: Knee pain, Joint effusion Disposition: HOME SELF-CARE Condition: Good Instructions (If sedation given, give patient instructions): Swollen Knee Joint (ED), Knee Pain (ED) Additional Instructions: Please return to the Emergency Department if symptoms worsen or any other concerns. Recommend he follow-up with your primary care provider and or provided orthopedic shoes salesperson for further evaluation of right knee pain. take prescribed medication as needed for pain. Prescriptions: Meloxicam [Mobic] 7.5 mg PO DAILY #14 tab Is patient prescribed a controlled substance at d/c from ED?: No Referrals: Francois Patel Jr, DO [Primary Care Provider] - 1-2 days Hany Angel DO [Doctor of Osteopathic Medicine] - 1-2 days Time of Disposition: 17:23
[2024-08-22] MEDS: KETOROLAC 15 MG/ML 1 ML VIAL IM STA (17:30)
[2024-08-22 17:36] VITALS: BP 138/84; PULSE 61; RESP 20; TEMP 98
== END 2024-08-22 17:35 | disposition home or self-care (01) ==
LOC: EC 16:08
CPT/HCPCS: 96372; 99283

== ENCOUNTER 2024-12-31 17:09 | Emergency (ER) | payer OTHER ==
[2024-12-31 17:12] VITALS: TEMP 97.5
[2024-12-31] MEDS: HYDROmorphone 0.5 MG/0.5 ML SYRINGE IVP STA (17:52)
--- NOTE | 2024-12-31 17:59 | ED ---
Abdominal Pain HPI - General Chief Complaint: Abdominal Pain Stated Complaint: Abdominal pain Time Seen by Provider: 12/31/24 17:15 Source: patient Mode of arrival: wheelchair Limitations: no limitations - History of Present Illness Initial Comments: This patient is a 59-year-old man who presents to have evaluation of left lower quadrant/groin pain. Patient relates that he has been having some intermittent flank pain going back approximately 1 week. He states that things became severe over the course of today and now he is feeling like he has to urinate but cannot. Patient has not noted fever or chills. Has not noted hematuria. No vomiting or diarrhea but occasional nausea. MD Complaint: abdominal pain, flank pain Onset/Timin -: week(s) Location: L flank Radiation: L flank Migration to: LLQ Severity: severe Quality: sharp Consistency: other (Initially intermittent now constant) Improves With: nothing Worsens With: nothing Associated Symptoms: other (Frequency) - Related Data Home Medications Medication Instructions Recorded Confirmed Metoprolol Tartrate [Lopressor] 25 mg PO HS 10/11/23 11/17/23 Metoprolol Tartrate [Lopressor] 50 mg PO QAM 10/11/23 11/17/23 Losartan [Cozaar] 25 mg PO HS 11/11/23 11/17/23 Ticagrelor [Brilinta] 90 mg PO BID 11/11/23 11/17/23 amLODIPine BESYLATE 5 mg PO DAILY 11/11/23 11/17/23 Previous Rx's Medication Instructions Recorded Aspirin EC [Ecotrin Low Dose] 81 mg PO DAILY #30 tab 09/15/23 Atorvastatin [Lipitor] 80 mg PO HS #30 tab 09/15/23 Empagliflozin [Jardiance] 10 mg PO DAILY #30 tablet 09/15/23 Nitroglycerin Sl Tabs [Nitrostat] 0.4 mg SUBLINGUAL Q5M PRN #100 tab 09/15/23 Meloxicam [Mobic] 7.5 mg PO DAILY #14 tab 08/22/24 HYDROcodone/APAP 5-325MG [[place] 1 tab PO Q4HR PRN 3 Days #18 tab 12/31/24 5-325] Ondansetron Odt [Zofran ODT] 4 mg PO Q8HR PRN #10 tab 12/31/24 Tamsulosin [Flomax] 0.4 mg PO DAILY #14 cap 12/31/24 Allergies Allergy/AdvReac Type Severity Reaction Status Date / Time ARB-Angiotensin Receptor Allergy Anaphylaxis, Verified 12/31/24 17:13 Antagonist tongue and mouth swelling Review of Systems ROS Statement: Those systems with pertinent positive or pertinent negative responses have been documented in the HPI. ROS Other: All systems not noted in ROS Statement are negative. Constitutional: Denies: fever, chills, weakness Respiratory: Denies: cough, dyspnea Cardiovascular: Denies: chest pain, palpitations, edema Gastrointestinal: Reports: as per HPI, abdominal pain, nausea. Denies: vomiting, diarrhea, constipation Genitourinary: Reports: urgency. Denies: dysuria, frequency, hematuria, discharge, testicular pain, testicular mass Musculoskeletal: Reports: back pain Skin: Denies: rash Neurological: Denies: headache, weakness, numbness Past Medical History Past Medical History: Coronary Artery Disease (CAD), Diabetes Mellitus, Hyperlipidemia, Hypertension, Myocardial Infarction ([place]), Vascular Disorder Additional Past Medical History / Comment(s): recent steroids for angioedema Rx to losartan in Sep 2023 Last Myocardial Infarction Date:: 09-13-23 History of Any Multi-Drug Resistant Organisms: None Reported Past Surgical History: Heart Catheterization With Stent Additional Past Surgical History / Comment(s): 5 cardiac stents Past Anesthesia/Blood Transfusion Reactions: Family History of Problems w/ Anesthesia Additional Past Anesthesia/Blood Transfusion Reaction / Comment(s): brother had hard time waking up with anesthesia Date of Last Stent Placement:: 09-13-23 Past Psychological History: No Psychological Hx Reported Smoking Status: Former smoker Past Alcohol Use History: None Reported Past Drug Use History: None Reported - Past Family History Mother Family Medical History: Cancer Brother(s) Family Medical History: Cancer General Exam Limitations: no limitations General appearance: alert, in no apparent distress Head exam: Present: atraumatic, normocephalic Eye exam: Present: normal appearance. Absent: scleral icterus, conjunctival injection ENT exam: Present: normal oropharynx Neck exam: Present: normal inspection Respiratory exam: Present: normal lung sounds bilaterally. Absent: respiratory distress, wheezes, rales, rhonchi, stridor, accessory muscle use Cardiovascular Exam: Present: regular rate, normal rhythm, normal heart sounds. Absent: systolic murmur, diastolic murmur, rubs, gallop GI/Abdominal exam: Present: soft. Absent: distended, tenderness, guarding, rebound, rigid, mass Extremities exam: Present: normal inspection, normal capillary refill. Absent: pedal edema, calf tenderness Back exam: Present: normal inspection, CVA tenderness (L). Absent: CVA tenderness (R) Neurological exam: Present: alert Skin exam: Present: warm, dry, intact, normal color. Absent: rash Course Vital Signs 12/31/24 12/31/24 12/31/24 17:10 19:32 20:37 Temperature 97.5 F L 97.5 F L Pulse Rate 91 83 89 Respiratory 20 17 16 Rate Blood Pressure 192/109 143/84 O2 Sat by Pulse 98 96 98 Oximetry Medical Decision Making - Medical Decision Making The patient had CT scan of the abdomen and pelvis that I interpreted as showing small distal ureteral stone with hydronephrosis. Was pt. sent in by a medical professional or institution (, PA, PREASSEMBLER AND INSPECTOR, urgent care, hospital, or group home...) When possible be specific @ -[No] Did you speak to anyone other than the patient for history (EMS, parent, family, police, friend...)? What history was obtained from this source @ -[No] Did you review nursing and triage notes (agree or disagree)? Why? @ -[I reviewed and agree with nursing and triage notes] Were old charts reviewed (outside hosp., previous admission, EMS record, old EKG, old radiological studies, urgent care reports/EKG's, group home records)? Report findings @ -[No old charts were reviewed] Differential Diagnosis (chest pain, altered mental status, abdominal pain women, abdominal pain men, vaginal bleeding, weakness, fever, dyspnea, syncope, headache, dizziness, GI bleed, back pain, seizure, CVA, palpatations, mental health, musculoskeletal)? @ -Differential Abdominal Pain Men: Appendicitis, cholecystitis, diverticulosis, ischemic bowel, pancreatitis, hepatitis, UTI, gastroenteritis, AAA, incarcerated hernia, bowel obstruction, constipation, inflammatory bowel, hepatitis, peptic ulcer disease, splenic infarction, perforated viscus, testicular torsion, this is not meant to be an all-inclusive list EKG interpreted by me (3pts min.). @ -[As above] X-rays interpreted by me (1pt min.). @ -[None done] CT interpreted by me (1pt min.). @ -[I interpreted as above U/S interpreted by me (1pt. min.). @ -[None done] What testing was considered but not performed or refused? (CT, X-rays, U/S, labs)? Why? @ -[None] What meds were considered but not given or refused? Why? @ -[None] Did you discuss the management of the patient with other professionals (professionals i.e. Dr., PA, PREASSEMBLER AND INSPECTOR, lab, RT, psych nurse, social work coordinator, wind commissioning technician, teacher, hospital security officer, piano case and bench assembler)? Give summary @ -[No] Was smoking cessation discussed for >3mins.? @ -[No] Was critical care preformed (if so, how long)? @ -[No] Were there social determinants of health that impacted care today? How? (Homelessness, low income, unemployed, alcoholism, drug addiction, transportation, low edu. Level, literacy, decrease access to med. care, fdc, rehab)? @ -[No] Was there de-escalation of care discussed even if they declined (Discuss DNR or withdrawal of care, Hospice)? DNR status @ -[No] What co-morbidities impacted this encounter? (DM, HTN, Smoking, COPD, CAD, Cancer, CVA, ARF, Chemo, Hep., AIDS, mental health diagnosis, sleep apnea, morbid obesity)? @ -[None] Was patient admitted / discharged? Hospital course, mention meds given and route, prescriptions, significant lab abnormalities, going to OR and other pertinent info. @ -[Patient is a 59-year-old man presenting with flank/abdomen pain and found to have distal stone on CT scan. The patient did have improvement with treatment here and stable to continue as outpatient. We discussed appropriate further care and follow-up as well as return parameters. Undiagnosed new problem with uncertain prognosis? @ -[No] Drug Therapy requiring intensive monitoring for toxicity (Heparin, Nitro, Insulin, Cardizem)? @ -[No] Were any procedures done? @ -[No] Diagnosis/symptom? @ -[Acute kidney stone Acute, or Chronic, or Acute on Chronic? @ -[Acute Uncomplicated (without systemic symptoms) or Complicated (systemic symptoms)? @ -[Uncomplicated Side effects of treatment? @ -[No] Exacerbation, Progression, or Severe Exacerbation? @ -[No] Poses a threat to life or bodily function? How? (Chest pain, [place], [place], pneumonia, PE, COPD, DKA, ARF, appy, cholecystitis, CVA, Diverticulitis, Homicidal, Suicidal, threat to staff... and all critical care pts) @ -[No] All treatments are based on ideal body weight as in ED triage - Lab Data Result diagrams: 12/31/24 17:48 12/31/24 17:48 Lab Results 12/31/24 12/31/24 12/31/24 Range/Units 17:48 17:48 17:48 WBC 23.7 H (3.8-10.6) k/uL RBC 4.28 L (4.30-5.90) m/uL Hgb 13.7 (13.0-17.5) gm/dL Hct 38.8 L (39.0-53.0) % MCV 90.5 (80.0-100.0) fL MCH 32.1 (25.0-35.0) pg MCHC 35.5 (31.0-37.0) g/dL RDW 12.3 (11.5-15.5) % Plt Count 326 (150-450) k/uL MPV 7.6 Neutrophils % 79 % Lymphocytes % 14 % Monocytes % 4 % Eosinophils % 2 % Basophils % 1 % Neutrophils # 18.8 H (1.3-7.7) k/uL Lymphocytes # 3.2 (1.0-4.8) k/uL Monocytes # 1.0 (0-1.0) k/uL Eosinophils # 0.4 (0-0.7) k/uL Basophils # 0.1 (0-0.2) k/uL Sodium 136 L (137-145) mmol/L Potassium 3.7 (3.5-5.1) mmol/L Chloride 102 (98-107) mmol/L Carbon Dioxide 22 (22-30) mmol/L Anion Gap 12 mmol/L BUN 17 (9-20) mg/dL Creatinine 0.78 (0.66-1.25) mg/dL Est GFR (CKD-EPI)AfAm >90 (>60 ml/min/1.73 sqM) Est GFR (CKD-EPI)NonAf >90 (>60 ml/min/1.73 sqM) Glucose 162 H (74-99) mg/dL Lactic Ac Sepsis Rflx Plasma Lactic Acid Lewis 2.4 H* (0.7-2.0) mmol/L Calcium 9.7 (8.4-10.2) mg/dL Total Bilirubin 0.9 (0.2-1.3) mg/dL AST 33 (17-59) U/L ALT 43 (4-49) U/L Alkaline Phosphatase 56 (38-126) U/L C-Reactive Protein 0.5 (<1.0) mg/dL Total Protein 8.0 (6.3-8.2) g/dL Albumin 4.9 (3.5-5.0) g/dL Amylase 44 (30-110) U/L Lipase 64 (23-300) U/L Urine Color Urine Appearance (Clear) Urine pH (5.0-8.0) Ur Specific [place] (1.001-1.035) Urine Protein (Negative) Urine Glucose (UA) (Negative) Urine Ketones (Negative) Urine Blood (Negative) Urine Nitrite (Negative) Urine Bilirubin (Negative) Urine Urobilinogen (<2.0) mg/dL Ur Leukocyte Esterase (Negative) Urine RBC (0-5) /hpf Urine WBC (0-5) /hpf Ur Squamous Epith Cells (0-4) /hpf Urine Mucus (None) /hpf 12/31/24 12/31/24 Range/Units 18:31 18:50 WBC (3.8-10.6) k/uL RBC (4.30-5.90) m/uL Hgb (13.0-17.5) gm/dL Hct (39.0-53.0) % MCV (80.0-100.0) fL MCH (25.0-35.0) pg MCHC (31.0-37.0) g/dL RDW (11.5-15.5) % Plt Count (150-450) k/uL MPV Neutrophils % % Lymphocytes % % Monocytes % % Eosinophils % % Basophils % % Neutrophils # (1.3-7.7) k/uL Lymphocytes # (1.0-4.8) k/uL Monocytes # (0-1.0) k/uL Eosinophils # (0-0.7) k/uL Basophils # (0-0.2) k/uL Sodium (137-145) mmol/L Potassium (3.5-5.1) mmol/L Chloride (98-107) mmol/L Carbon Dioxide (22-30) mmol/L Anion Gap mmol/L BUN (9-20) mg/dL Creatinine (0.66-1.25) mg/dL Est GFR (CKD-EPI)AfAm (>60 ml/min/1.73 sqM) Est GFR (CKD-EPI)NonAf (>60 ml/min/1.73 sqM) Glucose (74-99) mg/dL Lactic Ac Sepsis Rflx Y Plasma Lactic Acid [place] (0.7-2.0) mmol/L Calcium (8.4-10.2) mg/dL Total Bilirubin (0.2-1.3) mg/dL AST (17-59) U/L ALT (4-49) U/L Alkaline Phosphatase (38-126) U/L C-Reactive Protein (<1.0) mg/dL Total Protein (6.3-8.2) g/dL Albumin (3.5-5.0) g/dL Amylase (30-110) U/L Lipase (23-300) U/L Urine Color Yellow Urine Appearance Clear (Clear) Urine pH 5.0 (5.0-8.0) Ur Specific [place] 1.026 (1.001-1.035) Urine Protein Trace H (Negative) Urine Glucose (UA) Trace H (Negative) Urine Ketones Trace H (Negative) Urine Blood Large H (Negative) Urine Nitrite Negative (Negative) Urine Bilirubin Negative (Negative) Urine Urobilinogen <2.0 (<2.0) mg/dL Ur Leukocyte Esterase Negative (Negative) Urine RBC 34 H (0-5) /hpf Urine WBC 1 (0-5) /hpf Ur Squamous Epith Cells <1 (0-4) /hpf Urine Mucus Rare H (None) /hpf - EKG Data -: EKG Interpreted by Me EKG shows normal: sinus rhythm, axis (Normal), intervals (Normal), QRS complexes (Possible old inferior infarct based on Q waves 2 and aVF), ST-T waves (Normal) Rate: normal (Rate 84 bpm) Disposition Clinical Impression: Kidney stone on left side Disposition: HOME SELF-CARE Condition: Good Prescriptions: Tamsulosin [Flomax] 0.4 mg PO DAILY #14 cap HYDROcodone/APAP 5-325MG [[place] 5-325] 1 tab PO Q4HR PRN 3 Days #18 tab PRN Reason: Pain Ondansetron Odt [Zofran ODT] 4 mg PO Q8HR PRN #10 tab PRN Reason: Nausea Is patient prescribed a controlled substance at d/c from ED?: Yes When asked, does pt state using other controlled substances?: No If prescribed controlled substance>3 days was MAPS reviewed?: Prescribed <3 Days If opioid is for acute pain is fill amount 7 days or less?: No If Rx opioid, was Start Talking consent form obtained?: No Referrals: Francois Patel Jr, DO [Primary Care Provider] - 1-2 days Fredo Kline MD [STAFF PHYSICIAN] - 1-2 days
[2024-12-31 18:19] LABS: ALT 43 U/L (4-49); AST 33 U/L (17-59); African American GFR (CKD) >90 (>60 ml/min/1.73 sqM); Albumin 4.9 g/dL (3.5-5.0); Alkaline Phosphatase 56 U/L (38-126); Amylase 44 U/L (30-110); Anion Gap 12 mmol/L; Basophils # (A) 0.1 k/uL (0-0.2); Basophils % (A) 1 %; Blood Urea Nitrogen 17 mg/dL (9-20); C Reactive Protein 0.5 mg/dL (<1.0); Calcium 9.7 mg/dL (8.4-10.2); Carbon Dioxide 22 mmol/L (22-30); Chloride 102 mmol/L (98-107); Eosinophils # (A) 0.4 k/uL (0-0.7); Eosinophils % (A) 2 %; Glucose 162 mg/dL (74-99); HCT 38.8 % (39.0-53.0); HGB 13.7 gm/dL (13.0-17.5); Lipase 64 U/L (23-300); Lymphocytes # (A) 3.2 k/uL (1.0-4.8); Lymphocytes % (A) 14 %; MCH 32.1 pg (25.0-35.0); MCHC 35.5 g/dL (31.0-37.0); MCV 90.5 fL (80.0-100.0); Mean Platelet Volume 7.6; Monocytes % (A) 4 %; Neutrophils # (A) 18.8 k/uL (1.3-7.7); Neutrophils % (A) 79 %; Non-African American GFR(CKD) >90 (>60 ml/min/1.73 sqM); Platelet Count 326 k/uL (150-450); Potassium 3.7 mmol/L (3.5-5.1); RBC 4.28 m/uL (4.30-5.90); RDW 12.3 % (11.5-15.5); Sodium 136 mmol/L (137-145); Total Bilirubin 0.9 mg/dL (0.2-1.3); WBC 23.7 k/uL (3.8-10.6)
--- NOTE | 2024-12-31 18:26 | CT ---
EXAMINATION TYPE: CT abdomen pelvis wo con DATE OF EXAM: 12/31/2024 6:03 PM COMPARISON: None. CLINICAL INDICATION: Male, 59 years old with history of abdominal pain, BLQ; Back pain and lower abdo cinthia pain [id number]. TECHNIQUE: Axial CT abdomen pelvis wo con;Sagittal and coronal reformats were created on a separate workstation. Contrast used: mL of , (none if empty) Oral contrast used: without Oral Contrast (none if empty) CT DLP: 1309.3 mGycm, Automated exposure control for dose reduction was used. FINDINGS: LOWER CHEST: Unremarkable ABDOMEN LIVER: Unremarkable GALLBLADDER AND BILE DUCTS: Unremarkable. PANCREAS: Unremarkable. SPLEEN: Unremarkable. ADRENAL GLANDS: Unremarkable. KIDNEYS AND URETERS: Mild left hydronephrosis secondary obstructing 3 mm calculus at the ureterovesic ular junction. No right renal calculi. No additional left renal calculi. PELVIS BLADDER: No evidence for wall thickening or mass given limitations of exam. REPRODUCTIVE: Unremarkable. ABDOMEN & PELVIS STOMACH AND BOWEL: . Scattered diverticula are noted throughout the colon. No evidence of bowel obstr uction. The appendix is normal PERITONEUM/RETROPERITONEUM: No evidence of pneumoperitoneum or free fluid. VASCULATURE: Mild atherosclerotic calcifications are present throughout the abdominal aorta and its b ranches. No evidence of aortic aneurysm. MUSCULOSKELETAL: No acute osseous abnormalities. Mild disc degeneration changes are present throughou t the thoracolumbar spine. LYMPH NODES: No gross evidence for lymphadenopathy. SOFT TISSUE/ABDOMINAL WALL: Unremarkable IMPRESSION: Mild left hydronephrosis secondary obstructing 3 mm calculus at the ureterovesicular junction. No rig ht renal calculi. No additional left renal calculi. Colonic diverticulosis. [facility], , 12/31/2024 6:23 PM
[2024-12-31 19:08] LABS: Appearance,Urine Clear (Clear); Bilirubin,Urine Negative (Negative); Blood,Urine Large (Negative); Color,Urine Yellow; Glucose,Urine (UA) Trace (Negative); Ketones,Urine Trace (Negative); Leukocyte Esterase,Urine Negative (Negative); Mucus,Urine Rare /hpf; Nitrite,Urine Negative (Negative); Protein,Urine Trace (Negative); RBC,Urine 34 /hpf (0-5); Specific Gravity,Urine 1.026 (1.001-1.035); Squamous Epithelial Cell,Urine <1 /hpf (0-4); Urobilinogen,Urine <2.0 mg/dL (<2.0); WBC,Urine 1 /hpf (0-5)
[2024-12-31 19:33] VITALS: BP 143/84
[2024-12-31] MEDS: KETOROLAC 15 MG/ML 1 ML VIAL IVP STA (19:33)
[2024-12-31] MEDS: TAMSULOSIN 0.4 MG CAP.ER.24H PO STA (19:35)
[2024-12-31] MEDS: HYDROmorphone 1 MG/ML 1 ML SYRINGE IVP STA (20:36)
[2024-12-31 20:38] VITALS: PULSE 89; RESP 16
== END 2024-12-31 20:37 | disposition home or self-care (01) ==
LOC: EC 17:09
DX: N13.2 Hydronephrosis with renal and ureteral calculous obstruction (principal); Z87.891 Personal history of nicotine dependence; Z88.8 Allergy status to other drugs, medicaments and biological substances
CPT/HCPCS: 36415; 80053; 82150; 83605; 83690; 85025; 86140; 81001; 74176; 99284; 96374; 96375; J1885; J1171